=== PATIENT | female | born 1970 ===

== ENCOUNTER 2024-06-25 11:15 | Outpatient (AMB) | payer OTHER, SELFPAY ==
--- NOTE | 2024-06-25 11:19 | MHC.OFFVIS ---
Vital Signs 06/25/24 11:33 Height 5 ft 6 in Weight 160 lb 0.889 oz BMI 25.8 BP 112/62 Blood Pressure Location Lt brachial Position Sitting Respiration 16 Pulse 83 Pulse Source Pulse Oximeter Pulse Oximetry (%) 97 Oxygen Delivery Method Room Air Intake Visit Reasons: Myalgia Intake Note: Patient presents for Myalgia. My whole body hurts but I feel more pain on my shoulders, wrist, knees and ankles. I been feeling pain for 10 years but I been in extreme pain the last 5 years. Im taking Meloxicam and its not working Allergies No Known Allergies Allergy (Verified 06/25/24 11:29) Medication List - Last Reconciled 06/25/24 by Joanna Rivas MD meloxicam 7.5 mg PO DAILY pantoprazole 20 mg PO DAILY HPI Comments Details: This is a 53-year-old female with seropositive RA who presents as a new patient. She states that she has had diffuse joint pain since 2013. She was evaluated by a blueprinting and photocopy supervisor in [place] around 2016 and diagnosed with rheumatoid arthritis. She was started on methotrexate, she took it for about 3 years and it was working relatively well. Patient however developed hair loss and she discontinued it. She then moved to [place], she has been followed at the [facility], for 2 years. States that she was prescribed nabumetone. She does not recall being prescribed a DMARD. She continues to have diffuse joint pain and swelling especially her shoulders, wrists, hands, elbows, knees, feet, ankles. Denies any fevers or weight loss. Denies any history of DVT/PE. Denies skin rashes [facility] Surgical History S/P laparoscopic hernia repair History of hysterectomy Family History Mother Diabetes Arthritis Brother Pancreas cancer Social History Household Members: Family Housing: House Alcohol intake: never Patient Tobacco Use Status: Never used Tobacco Female Reproductive History Menstrual Total pregnancies: 4 Full term: 2 Ab spontaneous: 2 Review of Systems Const Denies fatigue Musc Reports arthralgias, Reports joint swelling, Reports limited range of motion and Reports stiffness Endo Denies fatigue Physical Exam Vital Signs: Last Vital Signs Pulse 83 06/25/24 11:33 Resp 16 06/25/24 11:33 BP 112/62 06/25/24 11:33 Pulse Ox 97 06/25/24 11:33 Oxygen Delivery Method Room Air 06/25/24 11:33 BMI result Body Mass Index 25.8 Const General: cooperative, healthy appearing and comfortable Nutritional Appearance: average body habitus Orientation/consciousness: patient oriented x3 Limitations: no limitations HEENT Head: Yes normocephalic and Yes atraumatic Mouth: moist mucous membranes Resp Effort & Inspection: normal respiratory effort and able to speak in complete sentences Auscultation: clear to auscultation bilaterally Cardio Rate: regular rate Rhythm: regular rhythm Skin General skin exam: no rashes or lesions noted Neuro General: patient oriented x3 Extrem Other: Significant rheumatoid arthritis deformities both hands Left wrist swelling and tenderness and significantly limited range of motion Synovial thickening of multiple MCPs left hand but no tenderness Right wrist is fixed with no flexion and extension Right 3rd MCP significant boggy swelling but no tenderness Right elbow flexion contracture associated with warmth and pain with range of motion Normal range of motion of left elbow but significant pain with full extension Bilateral knee pain with full flexion and extension Still ankle swelling and tenderness Multiple tender MTPs bilaterally Bilateral feet bunion Assessment & Plan Assessment & Plan (1) Seropositive rheumatoid arthritis: Comment: ++RF unknown CCP dx around 2016 MTX [id number] was effective but DC due to hair loss Code(s): M05.9 - Rheumatoid arthritis with rheumatoid factor, unspecified Category: Medical Plan: This is a 53-year-old female with seropositive deforming RA who presents as a new patient. Per patient she has had diffuse joint pain since 2013 , she was eventually diagnosed with rheumatoid arthritis around 2016 and was on methotrexate for approximately 3 years. Per patient it was effective but she discontinued it in 2019 due to hair loss. She moved to [place] and she has been followed up by a blueprinting and photocopy supervisor for the last 2 years. She does not recall being on any other DMARDs. On exam she has diffuse synovitis as well as significant deformities, contractures Check labs and x-rays to evaluate the extensive her disease Discussed the importance of please control. Discussed risks and benefits of Enbrel. Patient agreed to proceed. If her T spot and hepatitis panel is negative I will start prior authorization for Enbrel I will request records from the [facility]. Start prednisone taper for relief Advised patient not to combine prednisone with other NSAIDs Follow-up in about 6 weeks Plan I spent 60 minutes reviewing patient's chart, evaluating patient, ordering diagnostic workup, counseling patient & son and documenting in the chart Orders: Orders Complete Blood Count Auto Diff Today M05.9 - Rheumatoid arthritis with rheumatoid factor, unspecified Comprehensive Met. Panel Today M05.9 - Rheumatoid arthritis with rheumatoid factor, unspecified C Reactive Protein Today M05.9 - Rheumatoid arthritis with rheumatoid factor, unspecified Erythrocyte Sedimentation Rate Today M05.9 - Rheumatoid arthritis with rheumatoid factor, unspecified Immunofixation Pnl, Serum Today M05.9 - Rheumatoid arthritis with rheumatoid factor, unspecified Protein Electrophoresis, Serum Today M05.9 - Rheumatoid arthritis with rheumatoid factor, unspecified T Spot TB Today M05.9 - Rheumatoid arthritis with rheumatoid factor, unspecified HIV Ab/Ag Today M05.9 - Rheumatoid arthritis with rheumatoid factor, unspecified Cyclic Citrullinated Peptide Today M05.9 - Rheumatoid arthritis with rheumatoid factor, unspecified Complement C3 Today M32.9 - Systemic lupus erythematosus, unspecified Complement C4 Today M32.9 - Systemic lupus erythematosus, unspecified DNA Double Stranded-Crithidia Today M32.9 - Systemic lupus erythematosus, unspecified Sjogren's Antibodies Today M32.9 - Systemic lupus erythematosus, unspecified XR hand wrist RT Today M05.9 - Rheumatoid arthritis with rheumatoid factor, unspecified XR ankle RT min 3V Today M05.9 - Rheumatoid arthritis with rheumatoid factor, unspecified XR foot LT min 3V Today M05.9 - Rheumatoid arthritis with rheumatoid factor, unspecified XR knee LT 3V Today M05.9 - Rheumatoid arthritis with rheumatoid factor, unspecified XR knee RT 3V Today M05.9 - Rheumatoid arthritis with rheumatoid factor, unspecified XR knee standing BI Today M05.9 - Rheumatoid arthritis with rheumatoid factor, unspecified Hepatitis A,B,C Profile Today M05.9 - Rheumatoid arthritis with rheumatoid factor, unspecified JUAN Reflex Titer and Pattern Today M32.9 - Systemic lupus erythematosus, unspecified Anti Extractable Nuclear Ag Today M32.9 - Systemic lupus erythematosus, unspecified Anti DNA DS Antibody Today M32.9 - Systemic lupus erythematosus, unspecified Protein Creatinine Ratio, Ur Today M32.9 - Systemic lupus erythematosus, unspecified UA w Microscopic Today M32.9 - Systemic lupus erythematosus, unspecified XR hand wrist LT Today M05.9 - Rheumatoid arthritis with rheumatoid factor, unspecified XR elbow LT min 3V Today M05.9 - Rheumatoid arthritis with rheumatoid factor, unspecified XR elbow RT min 3V Today M05.9 - Rheumatoid arthritis with rheumatoid factor, unspecified XR ankle LT min 3V Today M05.9 - Rheumatoid arthritis with rheumatoid factor, unspecified XR foot RT min 3V Today M05.9 - Rheumatoid arthritis with rheumatoid factor, unspecified XR shoulder LT min 2V Today M05.9 - Rheumatoid arthritis with rheumatoid factor, unspecified XR shoulder RT min 2V Today M05.9 - Rheumatoid arthritis with rheumatoid factor, unspecified Medications: New prednisone Take 3 tabs daily for 1 week, 2 tabs daily for 1 week, 1 tab daily for 1 week then stop 42 tabs 0RF Coding Level of Care Code New Pt Level 5 (70298) Diagnoses Seropositive rheumatoid arthritis M05.9
[2024-06-25 11:33] VITALS: BP 112/62; PULSE 83; RESP 16; O2SAT 97; BMI 25.8
== END 2024-06-25 12:11 | disposition home or self-care (01) ==
PROVIDERS: PCP Family Medicine; Visit Provider Student in an Organized Health Care Education/Training Program
DX: M05.79 Rheumatoid arthritis with rheumatoid factor of multiple sites without organ or systems involvement (principal); M79.18 Myalgia, other site
CPT/HCPCS: 99205

== ENCOUNTER 2024-06-25 11:15 | Outpatient (REF) | payer OTHER, SELFPAY ==
[2024-06-25 12:44] LABS: MANUAL DIFF FLAG NO
[2024-06-25 13:50] LABS: Appearance Urine Clear; Color Urine Yellow; Glucose Urine UA Negative (Negative); Leukocyte Esterase Urine Negative (Negative); Nitrite Urine Negative (Negative); PH 7.5 (5.0-9.0); Specific Gravity - Urine 1.015 (1.005-1.025); Urine Blood Negative (Negative); Urine Ketones Negative (Negative); Urine Protein Negative (Neg-Trace)
[2024-06-25 13:56] LABS: Basophils Percent Auto 0.4 % (0-2); Eosinophils Absolute Auto 0.3 X10*3/uL (0.0-0.4); Hematocrit 37.6 % (37.0-47.0); Hemoglobin 11.7 g/dl (12.0-16.0); Imm Gran Abs Auto 0.02 X10*3/uL (0.00-0.03); Imm Gran Pct Auto 0.2 % (0.0-0.4); Lymphocytes Absolute Auto 1.9 X10*3/uL (1.2-4.9); Lymphocytes Percent Auto 22.1 % (20-40); Mean Corpuscular HGB Conc 31.1 g/dl (31.0-35.0); Mean Corpuscular Hemoglobin 27.7 pg (27.0-33.0); Mean Corpuscular Volume 89.1 fL (80.0-98.0); Mean Platelet Volume 10.3 fL (9.4-12.3); Monocytes Absolute Auto 0.6 X10*3/uL (0.1-1.2); Monocytes Percent Auto 7.4 % (2-11); Neutrophils Absolute Auto 5.6 x10*3/uL (2.0-8.3); Neutrophils Percent Auto 66.9 % (45-73); Platelet Count 640 X10*3/uL (160-400); Red Blood Count 4.22 X10*6/uL (4.20-5.50); Red Cell Distribution Width 14.2 % (11.0-16.0); White Blood Count 8.4 X10*3/uL (4.8-10.8)
[2024-06-25 13:56] LABS: Bacteria Urine None Seen (None Seen); Hyaline Casts Urine 0-2 /LPF (0-2); RBC Urine 0-2 /HPF (0-2); Squamous Epithelial Cell Urine 0-2 /HPF (0-2); WBC Urine 0-5 /HPF (0-5)
[2024-06-25 14:13] LABS: Total Protein Urine Random 9 mg/dL (<12)
[2024-06-25 14:18] LABS: Alanine Aminotransferase 11 U/L (0-31); Albumin Level 4.1 g/dL (3.5-5.0); Alkaline Phosphatase 114 U/L (39-117); Anion Gap 13 (12-20); Aspartate Amino Transferase 15 U/L (5-31); Bilirubin Total 0.3 mg/dL (0.0-1.0); Blood Urea Nitrogen 10 mg/dL (9-16); C Reactive Protein 4.68 mg/dL (< or = 0.50); Calcium 9.9 mg/dL (8.4-10.2); Carbon Dioxide 29 mmol/L (22-29); Chloride 103 mmol/L (96-108); Estimated Glomerular Filt Rate > 60; Glucose Random 82 mg/dL (60-115); Potassium 3.8 mmol/L (3.3-5.1); Sodium 141 mmol/L (135-145); Total Protein 8.8 g/dL (6.5-8.0)
[2024-06-25 14:44] LABS: Erythrocyte Sedimentation Rate 75 MM/HR (0-20)
[2024-06-26 07:38] LABS: HBS Num1 > 1000.00 mIU/mL (0-7.99); HBc Num1 5.38 S/CO (0.00-0.79); HBsAGNum1 0.44 S/CO (0.00-0.99); HIV AB/AG Nonreactive (Nonreactive); HIV Num 1 0.05 S/CO (0.00-0.99); Hepatitis A Antibody IgM 0.17 Index (0-0.79); Hepatitis B Surface Antigen Negative (Negative); ~HepC Num1 0.23 S/CO (0.00-0.79); ~Hepatitis A Antibody IgM Nonreactive (Nonreactive); ~Hepatitis B Surface Antibody REACTIVE (Nonreactive); ~Hepatitis C Antibody Nonreactive (Nonreactive)
[2024-06-26 09:13] LABS: HBc Num3 5.49 S/CO; Hepatitis B Core Antibody Reactive (Nonreactive)
[2024-06-26 12:53] LABS: Complement C3 163 mg/dL (83-193)
[2024-06-26 13:13] LABS: Prot Elec - Albumin 3.6 g/dL (3.8-4.8); Prot Elec - Alpha1 0.4 g/dL (0.2-0.3); Prot Elec - Alpha2 1.1 g/dL (0.5-0.9); Prot Elec - Beta 1 0.5 g/dL (0.4-0.6); Prot Elec - Beta 2 0.7 g/dL (0.2-0.5); Prot Elec - Gamma 1.9 g/dL (0.8-1.7); Prot Elec - Total Protein 8.2 g/dL (6.1-8.1)
[2024-06-26 21:09] LABS: Anti DNA DS Antibody <1 IU/mL; Antibody to SS-A Antigen <1.0 NEG AI (<1.0 NEG); Antibody to SS-B Antigen <1.0 NEG AI (<1.0 NEG); SM/Ribonucleoprotein Ab <1.0 NEG AI (<1.0 NEG); Smith Protein <1.0 NEG AI (<1.0 NEG)
[2024-06-27 18:37] LABS: IgA 467 mg/dL (47-310); IgG 2117 mg/dL (600-1640); IgM 81 mg/dL (50-300)
[2024-06-28 02:19] LABS: TS Negative Control Passed; TS Panel A 0; TS Panel B 1; TS Positive Control Passed; TSpotTB Negative (Negative)
[2024-06-28 21:42] LABS: Hepatitis B Core Antibody IgM NON-REACTIVE (NON-REACTIVE)
[2024-07-01 16:10] LABS: Cyclic Citrullinated Peptide >250 UNITS
[2024-07-02 12:13] LABS: ANA Pattern 2 Nuclear, Homogeneous; ANA Titer 2 1:40 titer; Anti Nuclear Antibody Screen POSITIVE (NEGATIVE); Anti Nuclear Antibody Titer 1:40 titer
[2024-07-05 15:43] LABS: DNAds, Crithidia Antibody Negative (Negative)
== END 2024-06-25 11:16 | disposition home or self-care (01) ==
LOC: HO.LAB 11:15
PROVIDERS: PCP Family Medicine; Visit Provider Student in an Organized Health Care Education/Training Program
DX: Z11.4 Encounter for screening for human immunodeficiency virus [HIV] (principal); Z11.1 Encounter for screening for respiratory tuberculosis; M05.9 Rheumatoid arthritis with rheumatoid factor, unspecified; M32.9 Systemic lupus erythematosus, unspecified
CPT/HCPCS: 36415; 80053; 81001; 82570; 82784; 84156; 84165; 85025; 85652; 86038; 86039; 86140; 86160; 86200; 86225; 86235; 86255; 86334; 86481; 86704; 86705; 86706; 86709; 86803; 87340; 87389; 99202

== ENCOUNTER 2024-09-19 13:13 | Outpatient (REF) | payer OTHER, SELFPAY | END 2024-09-19 13:14 | disposition home or self-care (01) | LOC: HO.XRAY 13:13 | PROVIDERS: Visit Provider Student in an Organized Health Care Education/Training Program | DX: M05.9 Rheumatoid arthritis with rheumatoid factor, unspecified (principal) | CPT/HCPCS: 73030; 73080; 73110; 73130; 73564; 73610; 73630 ==

== ENCOUNTER 2024-09-27 15:33 | Outpatient (AMB) | payer OTHER, SELFPAY ==
--- NOTE | 2024-09-27 15:56 | A.OFFVIS_ITS ---
Vital Signs 09/27/24 15:57 Height 5 ft 6 in Weight 175 lb 7.807 oz BMI 28.3 Intake Visit Reasons: RA/CM Intake Note: Patient last seen by Doctor Joanna Rivas on 06/25/24. Presents today for Myalgia follow up and labs/X-ray's test results. Patient would like to discuss changing Melixicam to a stronger medication. [facility] Name: [id number] Allergies No Known Allergies Allergy (Verified 09/27/24 15:58) HPI Comments Details: 54-year-old female with seropositive erosive RA returns for follow-up. She started Enbrel about 3 months ago. She has been doing Enbrel for the last 3 months. Well-tolerated. Has not reported any side effects. She states that she is dramatically better. All her joint pains are gone except for her right elbow and left ankle. Her left ankle is swollen. Initial history: This is a 53-year-old female with seropositive RA who presents as a new patient. She states that she has had diffuse joint pain since 2013. She was evaluated by a electrical systems design engineer in [place] around 2016 and diagnosed with rheumatoid arthritis. She was started on methotrexate, she took it for about 3 years and it was working relatively well. Patient however developed hair loss and she discontinued it. She then moved to [place], she has been followed at the [facility], for 2 years. States that she was prescribed nabumetone. She does not recall being prescribed a DMARD. She continues to have diffuse joint pain and swelling especially her shoulders, wrists, hands, elbows, knees, feet, ankles. Denies any fevers or weight loss. Denies any history of DVT/PE. Denies skin rashes [facility] Surgical History S/P laparoscopic hernia repair History of hysterectomy Family History Mother Diabetes Arthritis Brother Pancreas cancer Social History Household Members: Family Housing: House Alcohol intake: never Patient Tobacco Use Status: Never used Tobacco Female Reproductive History Menstrual Total pregnancies: 4 Full term: 2 Ab spontaneous: 2 Review of Systems Const Denies fatigue Musc Reports arthralgias, Reports joint swelling, Reports limited range of motion and Reports stiffness Endo Denies fatigue Physical Exam Vital Signs: BMI result Body Mass Index 28.3 Const General: cooperative, healthy appearing and comfortable Nutritional Appearance: average body habitus Orientation/consciousness: patient oriented x3 Limitations: no limitations HEENT Head: Yes normocephalic and Yes atraumatic Mouth: moist mucous membranes Resp Effort & Inspection: normal respiratory effort and able to speak in complete sentences Auscultation: clear to auscultation bilaterally Cardio Rate: regular rate Rhythm: regular rhythm Skin General skin exam: no rashes or lesions noted Neuro General: patient oriented x3 Extrem Other: Significant rheumatoid arthritis deformities both hands Significantly limited wrist flexion-extension bilaterally (chronic) Left wrist swelling and tenderness is resolved, prominent left ulnar styloid Synovial thickening of multiple MCPs left hand but no tenderness Right wrist is almost fixed with no flexion and extension Right 3rd MCP significant boggy swelling but no tenderness Tenderness at the right common extensor origin at the right lateral epicondyle No significant elbow warmth or pain with full flexion and extension Normal pain-free range of motion of left elbow, no warmth or swelling No knee pain swelling or warmth or pain with full flexion and extension Significant left ankle swelling, warmth and tenderness at the medial malleolus No tender MTPs today Negative MTP squeeze test Bilateral feet bunion Assessment & Plan Assessment & Plan (1) Seropositive rheumatoid arthritis: Comment: ++RF +++ CCP dx around 2016 MTX [id number] was effective but DC due to hair loss Enbrel started 06/2024 effective Code(s): M05.9 - Rheumatoid arthritis with rheumatoid factor, unspecified Category: Medical Plan: This is a 54-year-old female with seropositive deforming RA who presents for follow-up. Doing much better overall since Enbrel was started 3 months ago. It is well tolerated with no side effects. She is dramatically improved. She only has 1 swollen joint. The left ankle. I will prescribe prednisone taper. If patient gets recurrent synovitis, additional DMARDs should be considered such as hydroxychloroquine or leflunomide Labs before next visit in 3 months (2) Right tennis elbow: Code(s): M77.11 - Lateral epicondylitis, right elbow Category: Medical Plan: Referred to occupational therapy. If no improvement tender consider injection next visit (3) High risk medication use: Code(s): Z79.899 - Other long term care pharmacist (current) drug therapy Category: Medical Plan: Side effects of Enbrel were discussed with the patient in detail including increased risk of infection, demyelinating disease, reactivation of latent TB, possible increased risk of solid and skin tumors. Patient fully aware. Advised patient to seek medical care [facility] if patient has an infection and advised patient to stop the medication until the infection is resolved. Plan I spent 30 minutes reviewing patient's chart, evaluating patient, ordering diagnostic workup, counseling patient & son and documenting in the chart Orders: Orders OT Evaluation and Treatment Today M77.11 - Lateral epicondylitis, right elbow Complete Blood Count Auto Diff 3 Months M05.9 - Rheumatoid arthritis with rheumatoid factor, unspecified Comprehensive Met. Panel 3 Months M05.9 - Rheumatoid arthritis with rheumatoid factor, unspecified C Reactive Protein 3 Months M05.9 - Rheumatoid arthritis with rheumatoid f actor, unspecified Erythrocyte Sedimentation Rate 3 Months M05.9 - Rheumatoid arthritis with rheumatoid factor, unspecified Medications: Changed From prednisone Take 3 tabs daily for 1 week, 2 tabs daily for 1 week, 1 tab daily for 1 week then stop 42 tabs 0RF To prednisone Take 3 tabs daily for 5 days, 2 tabs daily for 5 days, 1 tab daily for 5 days then stop 30 tabs 0RF Coding Level of Care Code Est Pt Level 4 (99861) Complex EM visit Add On G2211 Diagnoses Seropositive rheumatoid arthritis M05.9 Right tennis elbow M77.11 High risk medication use Z79.899
[2024-09-27 15:57] VITALS: BMI 28.3
== END 2024-09-27 16:21 | disposition home or self-care (01) ==
PROVIDERS: PCP Family Medicine; Visit Provider Student in an Organized Health Care Education/Training Program
DX: M05.79 Rheumatoid arthritis with rheumatoid factor of multiple sites without organ or systems involvement (principal); M77.11 Lateral epicondylitis, right elbow; Z79.899 Other long term (current) drug therapy
CPT/HCPCS: 99214; G2211

== ENCOUNTER → 2024-09-27 15:33 | Outpatient (BNVA) | payer OTHER, SELFPAY | PROVIDERS: PCP Family Medicine; Visit Provider Student in an Organized Health Care Education/Training Program | DX: M05.9 Rheumatoid arthritis with rheumatoid factor, unspecified (principal); M77.11 Lateral epicondylitis, right elbow; Z79.899 Other long term (current) drug therapy | CPT/HCPCS: 99212 ==

== ENCOUNTER 2025-01-07 10:16 | Outpatient (REF) | payer OTHER, SELFPAY ==
[2025-01-07 10:44] LABS: MANUAL DIFF FLAG NO
--- OUTSIDE RECORDS SUMMARY | 2025-01-07 11:15 | XMS_ITS | Clinical Summary ---
Author Organization [employer] Address [address] [facility] [address] [place] [address] Care Team Providers Care Highway Maintenance Supervisor Name Role Phone Unavailable Primary Care Provider Unavailabl e Social History Tobacco Use Types Packs/Day Years Used Date Smoking Tobacco: Never Assessed Comments Unknown Sex and Gender Information Value Date Recorded Sex Assigned at Female 06/15/2023 12:58 PM EDT Legal Sex Female 12:54 PM EDT Gender Identity Female 06/15/2023 12:58 PM EDT Sexual Orientation Don't know 06/15/2023 12 :58 PM EDT Plan of Treatment Health Maintenance Due Date Last Done Comments CT Colonography 1969 Colonoscopy 1969 Colorectal Cancer Screening 1969 Depression Screening 1969 FIT DNA/Cologuard 1969 FIT 1969 FOBT 1969 HIV Screening 1969 SDOH Screening 1969 Sigmoidoscopy 1969 Alcohol/Substance Use Screening 1981 Tobacco Screening 1981 Hepatitis C Screening 1987 DTaP/Tdap/Td Vaccines (1 - Tdap) 1988 Hepatitis B Vaccines (1 of 3 - 19+ 3-dose series) 1988 Pap Smear 1990 Cervical Cancer Screening 1999 HPV/Cotest 1999 Mammogram 2009 Pneumococcal Vaccine: 50+ Ye ars (1 of 1 - PCV) 2019 Zoster Vaccines (1 of 2) 2019 COVID-19 Vaccine ( - 2023-2 5 season) 2024 Influenza Vaccine (#1) 2024 RSV Patients and Pa tients Aged 60 years or older (1 - 1-dose 75+ series) 2044 HIB Vaccines Aged Out No longer eligi ble based on patient's age to complete this topic HPV Vaccines Aged Out No longer eligi ble based on patient's age to complete this topic Hepatitis A Vaccines Aged Out No long er eligible based on patient's age to complete this topic IPV Vaccines Aged Out No longer eligi ble based on patient's age to complete this topic Meningococcal Vaccine Aged Out No carmen marcus eligible based on patient's age to complete this topic RSV under 20 months Aged Out No longe r eligible based on patient's age to complete this topic Rotavirus Vaccines Aged Out No longer eligible based on patient's age to complete this topic Insurance [facility]
--- OUTSIDE RECORDS SUMMARY | 2025-01-07 11:15 | XMS_ITS | Clinical Summary ---
Author Organization [address] [facility] Building Address [address] [place] [address] Phone Care Team Providers Care Sock Drier Name Role Phone Kristen James DO Primary Care Provider [phone] Allergies No known active allergies Medications pantoprazole (PROTONIX) 20 mg EC tablet TOME THELMA TABLETA TODOS [place] 03/01/2024 Active acetaminophen (TYLENOL 8 HOUR) 650 mg 8 hr tablet Take 1 tablet (650 mg total) by mouth every 12 (twelve) hours if needed. 09/06/2023 Active meloxicam (MOBIC) 7.5 mg tablet Take 1 tablet (7.5 mg total) by mouth 1 (one) time each day. 30 tablet 2 10/24/2024 Active Active Problems Problem Noted Date Diagnosed Date Myalgia 06/28/2024 Overview (09/10/2024): + RA. [facility]. Seen in 2023 Immunizations Name Administration Dates Next Due Tdap Tetanus diptheria acell ular pertussis (Boostrix; Adacel) 7yo and older 03/18/2024 Surgical History Surgery Date Site/Laterality Comments HYSTERECTOMY PROCEDURE: HISTORICAL HYSTERECTOMY BREAST SURGERY PROCEDURE: PA BREAST AUGMENTATION WITH IMPLANT HERNIA REPAIR PROCEDURE: LAPAROSCOPY, INGUINAL HERNIA REPAIR Medical History Medical History Date Comments History of uterine fibroid DX:Hi story of uterine fibroid History of anemia DX:History of anemia Family History Medical History Relation Name Comments Diabetes Mother Relation Name Status Comments Mother Social History Tobacco Use Types Packs/Day Years Used Date Smoking Tobacco: Never Smokeless Tobacco: Never Alcohol Use Standard Drinks/Week Comments Never 0 (1 standard drink = 0.6 oz pur e alcohol) Housing Instability Answer Date Recorde d Are you worried that in the next 2 months you may not have stable housing? Patient declined 09/25/2024 Food Access & Nutrition Answer Date Rec orded Do you have access to a vari ety of food including fruits and vegetables? No 09/25/2024 Financial Risk Answer Date Recorded How hard is it for you to pa y for the very basics like food, housing, medical care, and air conditioning / heating? Very hard 09/25/2024 Transportation Answer Date Recorded Has the lack of transportati on kept you from meetings, work, or from getting things needed for daily living? Unable to respond 09/25/2024 Has the lack of transportati on kept you from medical appointments or from getting medications? Unable to respond 09/25/2024 Social Isolation Answer Date Recorded How often do you feel lonely or isolated from th ose around you? Never 09/25/2024 Food Risk Answer Date Recorded Within the past 12 months we worried whether our food would run out before we got money to buy more. Not asked 024 Within the past 12 months th e food we bought just didn't last and we didn't have money to get more. Sometimes true 09/25/2024 Dependent Care Answer Date Recorded Do you need help finding or paying for care for your loved ones. For example, children librarian or elderly care for an older adult? Patient declined 09/25/2024 Education Answer Date Recorded Do you think completing more education or training, like finishing a GED, going to college, or learning a trade, would be helpful for you? N/A 09/25/2024 Employment and Income Answer Date Recor ded During the last four weeks, have you been actively looking for work? Patient declined 09/25/2024 Living Situation Answer Date Recorded What is your living situation? 1 11/25/2023 Comments Unknown Sex and Gender Information Value Date Recorded Sex Assigned at Not on file Legal Sex Female 4:17 AM EST Gender Identity Not on file Sexual Orientation Not on file Obstetrics History Last Filed Vital Signs Vital Sign Reading Time Taken Comments Blood Pressure 116/78 03/18/2024 2:21 PM EDT Pulse 80 03/18/2024 2:21 PM EDT Temperature - - Respiratory Rate - - Oxygen Saturation - - Inhaled Oxygen Concentration - - Weight 75.5 kg (166 lb 8 oz) 03/18/2024 2:21 PM EDT Height - - Body Mass Index - - Plan of Treatment Upcoming Encounters Date Type Department Care Team (Late st Contact Info) Description 01/21/2025 9:45 AM EST Office Visit [facility] [address] [place] [address] Raúl Watson PA [address] [place] [address] Health Maintenance Due Date Last Done Comments Breast Cancer Screening 1969 Hepatitis B Vaccines (1 of 3 - 19+ 3-dose series) 1988 Cervical Cancer Screening: P ap Smear 1990 Pneumococcal Vaccine: 50+ Ye ars (1 of 1 - PCV) 2019 Zoster Vaccines (1 of 2) 2019 Colorectal Cancer Screening: Colonoscopy 10/23/2022 HIV Screening 10/23/2022 COVID-19 Vaccine (1 - 2023-2 5 season) 2024 Influenza Vaccine (#1) 2024 Depression Screening 09/25/2025 09/25/2024 Social Influencers of Health Screening 09/25/2025 09/25/2024 Cholesterol Screening (Lipid Panel) 09/19/2028 09/19/2023 DTaP,Tdap,and Td Vaccines (2 - Td or Tdap) 03/18/2034 03/18/2024 Hepatitis C Screening Completed 09/19/2023 HIB Vaccines Aged Out No longer eligi [...] on patient's age to complete this topic MMR Vaccines Aged Out No longer eligi ble based on patient's age to complete this topic Meningococcal ACWY Vaccine Aged Out N o longer eligible based on patient's age to complete this topic Meningococcal B Vacine Aged Out No lo nger eligible based on patient's age to complete this topic Pneumococcal Vaccine: Pediat rics (0 to 5 Years) and At-Risk Patients (6 to 64 Years) Aged Out No longer eligi ble based on patient's age to complete this topic RSV Immunization Patients Un devan 20 months Aged Out No longer eligible b ased on patient's age to complete this topic Varicella Vaccines Aged Out No longer eligible based on patient's age to complete this topic Procedures Procedure Name Priority Date/Time Associated Diagnosis Comments HEPATITIS C SCREENING Routine 09/19/2023 LIPID PANEL Routine 09/19/2023 from Last 3 Months or Most Recently Relevant to Health Maintenance Results * Hepatitis C Screening (09/19/2023) Hepatitis C Screening Abstracted Historical Provider HEALTH MAINTENANCE Final Result * Lipid panel (09/19/2023) LDL/HDL Ratio 2 0 - 4 Triglycerides 58 0 - 150 mg/dL Cholesterol 196 0 - 200 mg/dL HDL 86 >=40 mg/dL LDL Cholesterol 99 0 - 100 mg/dL Blood Venous blood specimen / Unknown Historical Provider LAB BLOOD ORDERABLES Berenice l Result from Last 3 Months or Most Recently Relevant to Health Maintenance Insurance PLANS Care Teams Sock Drier Relationship Specialty Start Date End Date Kristen James DO [address] [place] [address] PCP - General 06/28/23
[2025-01-07 11:21] LABS: Basophils Percent Auto 0.4 % (0-2); Eosinophils Absolute Auto 0.1 X10*3/uL (0.0-0.4); Eosinophils Percent Auto 1.6 % (0-4); Hematocrit 42.4 % (37.0-47.0); Hemoglobin 13.3 g/dl (12.0-16.0); Imm Gran Abs Auto 0.03 X10*3/uL (0.00-0.03); Imm Gran Pct Auto 0.3 % (0.0-0.4); Lymphocytes Absolute Auto 1.9 X10*3/uL (1.2-4.9); Lymphocytes Percent Auto 20.8 % (20-40); Mean Corpuscular HGB Conc 31.4 g/dl (31.0-35.0); Mean Corpuscular Hemoglobin 28.7 pg (27.0-33.0); Mean Corpuscular Volume 91.6 fL (80.0-98.0); Mean Platelet Volume 11.2 fL (9.4-12.3); Monocytes Absolute Auto 0.6 X10*3/uL (0.1-1.2); Monocytes Percent Auto 6.9 % (2-11); Neutrophils Absolute Auto 6.3 x10*3/uL (2.0-8.3); Platelet Count 420 X10*3/uL (160-400); Red Blood Count 4.63 X10*6/uL (4.20-5.50); Red Cell Distribution Width 13.2 % (11.0-16.0)
[2025-01-07 11:50] LABS: Estimated Average Glucose 117 mg/dL; Hemoglobin A1C 133.5268 umol/L; Hemoglobin A1c % 5.7 % (<6.0); Total Hemoglobin (HGBA1C) 3432.4112 umol/L
[2025-01-07 12:02] LABS: Erythrocyte Sedimentation Rate 10 MM/HR (0-20)
[2025-01-07 12:20] LABS: Alanine Aminotransferase 59 U/L (0-31); Albumin Level 4.1 g/dL (3.5-5.0); Alkaline Phosphatase 103 U/L (39-117); Anion Gap 12 (12-20); Aspartate Amino Transferase 54 U/L (5-31); Bilirubin Total 0.6 mg/dL (0.0-1.0); Blood Urea Nitrogen 16 mg/dL (9-16); C Reactive Protein 0.24 mg/dL (< or = 0.50); Calcium 9.6 mg/dL (8.4-10.2); Carbon Dioxide 26 mmol/L (22-29); Chloride 109 mmol/L (96-108); Estimated Glomerular Filt Rate > 60; Glucose Random 86 mg/dL (60-115); Potassium 4.2 mmol/L (3.3-5.1); Sodium 143 mmol/L (135-145); Total Protein 7.6 g/dL (6.5-8.0)
== END 2025-01-07 10:17 | disposition home or self-care (01) ==
LOC: HO.LAB 10:16
PROVIDERS: Visit Provider Student in an Organized Health Care Education/Training Program
DX: M05.9 Rheumatoid arthritis with rheumatoid factor, unspecified (principal); Z13.1 Encounter for screening for diabetes mellitus; M19.072 Primary osteoarthritis, left ankle and foot; Z51.81 Encounter for therapeutic drug level monitoring; Z79.620 Long term (current) use of immunosuppressive biologic
CPT/HCPCS: 36415; 80053; 83036; 85025; 85652; 86140; 99212

== ENCOUNTER 2025-01-07 10:51 | Outpatient (AMB) | payer OTHER, SELFPAY ==
--- NOTE | 2025-01-07 11:18 | A.OFFVIS_ITS ---
Vital Signs 01/07/25 11:23 Height 5 ft 6 in Weight 177 lb 11.081 oz BMI 28.7 BP 120/82 Blood Pressure Location Rt brachial Position Sitting Respiration 16 Pulse 67 Pulse Source Pulse Oximeter Pulse Oximetry (%) 97 Oxygen Delivery Method Room Air Intake Visit Reasons: RA Intake Note: Patient presents for RA. Matchbook Assembler Required: Yes Matchbook Assembler Language: Talent Acquisition Coordinator Services: Matchbook Assembler Present Matchbook Assembler Name: Mirna [id number] Information Interpreted: non-clinical & clinical Allergies No Known Allergies Allergy (Verified 01/07/25 11:22) Medication List - Last Reconciled 01/07/25 by Danay Moreira MD Enbrel SureClick (etanercept) 50 mg subcut QWEEK NS meloxicam 7.5 mg PO DAILY pantoprazole 20 mg PO DAILY prednisone 10 mg PO DAILY HPI Comments Details: Patient is a 54-year-old female with seropositive erosive rheumatoid arthritis here today for follow up Interval History: Patient last seen 09/27/[address] Rivas. At that time she had recently started Enbrel and reported that her symptoms were dramatically better. Only remaining problems where her right elbow and left ankle. Today, Patient is feeling much better Still having residual left foot pain makes it difficult to walk Rheumatologic History: Seropositive RA ++RF +++ CCP dx around 2016 MTX [id number] was effective but DC due to hair loss Enbrel started 06/2024 effective. Initial history: This is a 53-year-old female with seropositive RA who presents as a new patient. She states that she has had diffuse joint pain since 2014. She was evaluated by a cold working supervisor in [place] around 2016 and diagnosed with rheumatoid arthritis. She was started on methotrexate, she took it for about 3 years and it was working relatively well. Patient however developed hair loss and she discontinued it. She then moved to [place], she has been followed at the [facility], for 2 years. States that she was prescribed nabumetone. She does not recall being prescribed a DMARD. She continues to have diffuse joint pain and swelling especially her shoulders, wrists, hands, elbows, knees, feet, ankles. Denies any fevers or weight loss. Denies any history of DVT/PE. Denies skin rashes Current Rheumatology Medication(s): Enbrel 50mg SC weekly Prednisone 10mg daily [facility] Medical History (Updated 01/07/25 @ 12:49 by Danay Moreira MD) Encounter for monitoring of etanercept therapy Osteoarthritis Surgical History S/P laparoscopic hernia repair History of hysterectomy Family History Mother Diabetes Arthritis Brother Pancreas cancer Social History Household Members: Family Housing: House Alcohol intake: never Patient Tobacco Use Status: Never used Tobacco Review of Systems Const Details: Review of Systems Constitutional: Denies fever, chills, weight loss ENT: Denies vision changes, eye pain or eye redness, dental caries, dry mouth GI: Denies nausea, vomiting, diarrhea, abdominal pain, change in BM Pulm: Denies SOB, CAR, hemoptysis, wheezing Cards: Denies chest pain, palpitations Skin: Denies Raynaud's, rash, nail changes, photosensitivity, COMMUTATOR PRESSER: Denies headaches, weakness, paresthesias, recurrent falls MSK: as per HPI All other systems reviewed and are unremarkable except noted above Physical Exam Vital Signs: Last Vital Signs Pulse 67 01/07/25 11:23 Resp 16 01/07/25 11:23 BP 120/82 01/07/25 11:23 Pulse Ox 97 01/07/25 11:23 Oxygen Delivery Method Room Air 01/07/25 11:23 BMI result Body Mass Index 28.7 Vital signs reviewed Physical Examination CONSTITUITIONAL Patient alert and cooperative. Well appearing and in no apparent painful distress HEENT Conjunctiva and sclera clear. ?Pupils equal round and reactive to light. ?No lymphadenopathy. ? CHEST/RESPIRATORY SYSTEM Normal respiratory effort and able to speak in complete sentences. ?Clear to auscultation bilaterally. ?No crackles, rales, rhonchi, wheezes heard. CARDIAC SYSTEM Regular rate and rhythm. ?S1 and S2 heard no murmurs. ?Radial pulses intact bilaterally MSK Hands: ?Good carbide operator strength bilaterally. No deformities noted. ?No synovitis no abelardo to the MCPs, PIPs or DIPs. ?No tenderness to palpation of these joints. Wrists: ?Bilateral wrist fusion. ?No tenderness to palpation or synovitis noted to the wrists. Elbows: Full range of motion without pain. No tenderness, weakness, swelling, increased warmth or erythema. Shoulders: Full range of motion without pain. No tenderness, weakness, swelling, increased warmth or erythema. Hips: Full range of motion without pain. Hip bursa: No tenderness to palpation Knees: ?Full range of motion. ?No tenderness, swelling, increased warmth or erythema.?No effusion or crepitations Ankles: Full range of motion. ?No tenderness, swelling, increased warmth or erythema.? Feet: ?Can lose palpation of the base of the 1st metatarsal and 5th metatarsal. With minor overlying swelling Tender points:?No tenderness to palpation of the bilateral trapezius, supraspinatus, greater trochanters, anterior costochondral junctions, bilateral gluteal areas, bilateral suboccipital muscle insertions SKIN Skin intact without rashes. Results Reviewed Results Reviewed: Laboratory Tests 06/25/24 01/07/25 12:36 10:42 WBC 9.0 RBC 4.63 Hgb 13.3 Hct 42.4 MCV 91.6 Plt Count 420 H D ESR 75 H 10 Sodium 141 143 Potassium 3.8 4.2 Chloride 103 109 H Carbon Dioxide 29 26 BUN 10 16 Creatinine 0.69 0.63 Total Bilirubin 0.6 AST 54 H ALT 59 H C-Reactive Protein 4.68 H 0.24 Albumin 4.1 Laboratory Tests 06/25/24 12:36 Cycl Citrul Peptide IgG >250 H Hepatitis A IgM Ab Nonreactive Hep Bs Antigen Negative Hep Bs Antibody REACTIVE Hep B Core Total Ab Reactive Hep B Core IgM Ab NON-REACTIVE Hepatitis C Ab (EIA) Nonreactive HIV 1&2 Ab/P24 Ag 4thGn Nonreactive TB Test (T-Spot) Com Negative XR Bilat Feet 08/2024 FINDINGS (Left): Diffuse demineralization. Pes planus. Degenerative changes at the talonavicular and calcaneocuboid joints with hypertrophic change and narrowing. Degenerative changes at the midfoot and tarsometatarsal joints. Mild degenerative changes at the first metatarsophalangeal joint. FINDINGS (Right): Diffuse demineralization. Pes planus. Moderate degenerative changes with hypertrophic change and narrowing at the talonavicular joint. Mild degenerative changes in the first metatarsophalangeal joint. Degenerative changes in the midfoot. Possible erosion along the lateral aspect of the fifth metatarsal head. Assessment & Plan Assessment & Plan (1) Seropositive rheumatoid arthritis: Comment: ++RF +++ CCP dx around 2017 MTX [id number] was effective but DC due to hair loss Enbrel started 06/2024 effective Code(s): M05.9 - Rheumatoid arthritis with rheumatoid factor, unspecified Category: Medical Plan: #Seropositive Erosive RA Patient currently in remission on Enbrel Stop prednisone 10mg Elevated transaminases, stop meloxicam Plan - Enbrel 50mg SC weekly - Stop prednisone - Stop meloxicam - RTC 3 months - Labs before visit: CBC, CMP, ESR, CRP, hepatitis panel, T spot (2) Osteoarthritis: Code(s): M19.90 - Unspecified osteoarthritis, unspecified site Category: Medical Qualifiers: Osteoarthritis location: foot Osteoarthritis type: primary Laterality: left Qualified Code(s): M19.072 - Primary osteoarthritis, left ankle and foot Plan: #Foot OA Patient with residual pain likely secondary to osteoarthritis as evidenced on her x-rays. We will need to stop the meloxicam given the elevated transaminases. Topical diclofenac and we will schedule an appointment for ultrasound guided injection of the MTPs/tarsal joint Plan - Topical diclofenac - US guided steroid injection (3) Encounter for monitoring of etanercept therapy: Code(s): Z51.81 - Encounter for therapeutic drug level monitoring; Z79.620 - group home (current) use of immunosuppressive biologic Category: Medical Plan: #Long-term Use of TNF Inhibitors: Enbrel Discussed with the patient the benefits and risks of TNF inhibitors for the management of the rheumatic condition Benefits include reduce pain, maintenance of remission and reduction of flares as well as ?progression of the disease Risks include injection sites/infusion reactions, serious infections (such as bacterial infections, opportunistic infections), malignancy, delaminating syndromes, autoimmune phenomena, CHF exacerbations, palmar plantar psoriasis and cytopenias Recommended rotating injection sites, and holding medication during and for up to 1 week after resolution of a febrile illness or open skin wound Plan I spent 35 minutes reviewing the record and labs, taking a history, examining the patient, discussing the treatment plan and documenting in the medical record Orders: Orders US guided asp or inj major jt Today M19.079 - Primary osteoarthritis, unspecified ankle and foot Comprehensive Met. Panel 3 Months M05.9 - Rheumatoid arthritis with rheumatoid factor, unspecified Complete Blood Count Auto Diff 3 Months M05.9 - Rheumatoid arthritis with rheumatoid factor, unspecified C Reactive Protein 3 Months M05.9 - Rheumatoid arthritis with rheumatoid factor, unspecified Erythrocyte Sedimentation Rate 3 Months M05.9 - Rheumatoid arthritis with rhe umatoid factor, unspecified Hepatitis A,B,C Profile Today M05.9 - Rheumatoid arthritis with rheumatoid factor, unspecified T Spot TB Today M05.9 - Rheumatoid arthritis with rheumatoid factor, unspecified Medications: New diclofenac sodium 1% (Arthritis Pain (diclofenac)) apply to foot 4 grams topical QID 100 grams 0RF M19.90 - Unspecified osteoarthritis, unspecified site Refilled Enbrel SureClick (etanercept) 50 mg subcut QWEEK 4 mL 3RF NS M05.9 - Rheumatoid arthritis with rheumatoid factor, unspecified Discontinued prednisone Discontinued Reason: Doctor's Order 10 mg PO DAILY 30 tabs 0RF M05.9 - Rheumatoid arthritis with rheumatoid factor, unspecified Coding Level of Care Code Est Pt Level 4 (86785) Complex EM visit Add On G2211 Diagnoses Seropositive rheumatoid arthritis M05.9 Primary osteoarthritis of left foot M19.072 Osteoarthritis location: foot Osteoarthritis type: primary Laterality: left Encounter for monitoring of etanercept therapy Z51.81; Z79.620
[2025-01-07 11:23] VITALS: BP 120/82; PULSE 67; RESP 16; O2SAT 97; BMI 28.7
--- OUTSIDE RECORDS SUMMARY | 2025-01-07 12:03 | XMS_ITS | Clinical Summary ---
Author Organization [employer] Address [address] [facility] [address] [place] [address] Care Team Providers Care Tow Feeder Name Role Phone Unavailable Primary Care Provider [...] patient's age to complete this topic Insurance [facility]
--- OUTSIDE RECORDS SUMMARY | 2025-01-07 12:03 | XMS_ITS | Clinical Summary ---
Author Organization [address] [facility] Building Address [address] [place] [address] Phone Care Team Providers Care Lead Neurodiagnostic Technologist Name Role Phone Kristen James DO Primary Care Provider [phone] Allergies No known active allergies Medications pantoprazole [...] Date Myalgia 06/28/2024 Overview (09/10/2024): + RA. [facility]. Seen in 2023 Immunizations Name Administration Dates Next Due Tdap Tetanus diptheria acell ular pertussis (Boostrix; Adacel) 7yo and older 03/18/2024 Surgical History Surgery Date Site/Laterality Comments HYSTERECTOMY PROCEDURE: HISTORICAL HYSTERECTOMY BREAST SURGERY PROCEDURE: KS BREAST AUGMENTATION WITH IMPLANT HERNIA REPAIR PROCEDURE: [...] care for your loved ones. For example, child & adolescent psychiatrist or elderly care for an older adult? [...] Description 01/21/2025 9:45 AM EST Office Visit Client Service Manager - [facility] [address] [place] [address] Raúl Watson PA [address] [place] [address] Health Maintenance Due Date Last Done Comments [...] to Health Maintenance Insurance PLANS Care Teams Lead Neurodiagnostic Technologist Relationship Specialty Start Date End Date Kristen James DO [address] [place] [address] PCP - General 06/28/23
== END 2025-01-07 12:31 | disposition home or self-care (01) ==
PROVIDERS: PCP Family Medicine; Visit Provider Student in an Organized Health Care Education/Training Program
DX: M05.79 Rheumatoid arthritis with rheumatoid factor of multiple sites without organ or systems involvement (principal); M19.072 Primary osteoarthritis, left ankle and foot; Z51.81 Encounter for therapeutic drug level monitoring; Z79.620 Long term (current) use of immunosuppressive biologic
CPT/HCPCS: 99214; G2211

== ENCOUNTER 2025-04-15 09:09 | Outpatient (AMB) | payer OTHER, SELFPAY ==
--- NOTE | 2025-04-15 09:26 | A.OFFVIS_ITS ---
Vital Signs 04/15/25 09:31 Height 5 ft 6 in Weight 175 lb 14.862 oz BMI 28.4 BP 115/72 Blood Pressure Location Lt brachial Position Sitting Respiration 16 Pulse 66 Pulse Source Pulse Oximeter Pulse Oximetry (%) 98 Oxygen Delivery Method Room Air Intake Visit Reasons: RA Intake Note: Patient presents for RA follow up. Meter Repair Shop Supervisor Required: Yes Meter Repair Shop Supervisor Language: Director Of Radio Services Services: Meter Repair Shop Supervisor Present Meter Repair Shop Supervisor Name: Pedro [id number] Information Interpreted: non-clinical & clinical Allergies No Known Allergies Allergy (Verified 04/15/25 09:30) Medication List - Last Reconciled 04/15/25 by Danay Moreira MD diclofenac sodium 1% (Arthritis Pain (diclofenac)) 4 grams topical QID Enbrel SureClick (etanercept) 50 mg subcut QWEEK NS pantoprazole 20 mg PO DAILY HPI Comments Details: Patient is a 54-year-old female with seropositive erosive rheumatoid arthritis here today for follow up Interval History: Patient last seen 01/07/25 with me. At that time she was on Enbrel 50 mg weekly and prednisone 10 mg daily. She was in remission based on her examination and plan was to stop her prednisone Today, Able to stop the prednisone without any issues Tolerating weekly Enbrel Complaining of left ankle pain Rheumatologic History: Seropositive RA ++RF +++ CCP dx around 2016 MTX [id number] was effective but DC due to hair loss Enbrel started 06/2024 effective. Initial history: This is a 53-year-old female with seropositive RA who presents as a new patient. She states that she has had diffuse joint pain since 2013. She was evaluated by a refrigeration mechanic helper in [place] around 2016 and diagnosed with rheumatoid arthritis. She was started on methotrexate, she took it for about 3 years and it was working relatively well. Patient however developed hair loss and she discontinued it. She then moved to [place], she has been followed at the [facility], for 2 years. States that she was prescribed nabumetone. She does not recall being prescribed a DMARD. She continues to have diffuse joint pain and swelling especially her shoulders, wrists, hands, elbows, knees, feet, ankles. Denies any fevers or weight loss. Denies any history of DVT/PE. Denies skin rashes Current Rheumatology Medication(s): Enbrel 50mg SC weekly [facility] Medical History (Updated 01/07/25 @ 12:49 by Danay Moreira MD) Encounter for monitoring of etanercept therapy Osteoarthritis Surgical History S/P laparoscopic hernia repair History of hysterectomy Family History Mother Diabetes Arthritis Brother Pancreas cancer Social History Household Members: Family Housing: House Alcohol intake: never Patient Tobacco Use Status: Never used Tobacco Review of Systems Const Details: Review of Systems Constitutional: Denies fever, chills, weight loss ENT: Denies vision changes, eye pain or eye redness, dental caries, dry mouth GI: Denies nausea, vomiting, diarrhea, abdominal pain, change in BM Pulm: Denies SOB, CAR, hemoptysis, wheezing Cards: Denies chest pain, palpitations Skin: Denies Raynaud's, rash, nail changes, photosensitivity, ADMITTING CLERK: Denies headaches, weakness, paresthesias, recurrent falls MSK: as per HPI All other systems reviewed and are unremarkable except noted above Physical Exam Vital Signs: Last Vital Signs Pulse 66 04/15/25 09:31 Resp 16 04/15/25 09:31 BP 115/72 04/15/25 09:31 Pulse Ox 98 04/15/25 09:31 Oxygen Delivery Method Room Air 04/15/25 09:31 BMI result Body Mass Index 28.4 Vital signs reviewed Physical Examination CONSTITUITIONAL Patient alert and cooperative. Well appearing and in no apparent painful distr ess HEENT Conjunctiva and sclera clear. ?Pupils equal round and reactive to light. ?No lymphadenopathy. ? CHEST/RESPIRATORY SYSTEM Normal respiratory effort and able to speak in complete sentences. ?Clear to auscultation bilaterally. ?No crackles, rales, rhonchi, wheezes heard. CARDIAC SYSTEM Regular rate and rhythm. ?S1 and S2 heard no murmurs. ?Radial pulses intact bilaterally MSK Hands: ?Good certified maintenance welder strength bilaterally. No deformities noted. ?No synovitis noted to the MCPs, PIPs or DIPs. ?No tenderness to palpation of these joints. Wrists: ?Bilateral wrist fusion. ?No tenderness to palpation or synovitis noted to the wrists. Elbows: Full range of motion without pain. No tenderness, weakness, swelling, increased warmth or erythema. Shoulders: Full range of motion without pain. No tenderness, weakness, swelling, increased warmth or erythema. Hips: Full range of motion without pain. Hip bursa: No tenderness to palpation Knees: ?Full range of motion. ?No tenderness, swelling, increased warmth or erythema.?No effusion or crepitations Ankles: Left ankle with paramalleolar swelling at the medial and lateral malleolus with TTP of the subtalar joint Feet: ?Negative squeeze Tender points:?No tenderness to palpation of the bilateral trapezius, supraspinatus, greater trochanters, anterior costochondral junctions, bilateral gluteal areas, bilateral suboccipital muscle insertions SKIN Skin intact without rashes. Results Reviewed Results Reviewed: Laboratory Tests 06/25/24 01/07/25 12:36 10:42 WBC 9.0 RBC 4.63 Hgb 13.3 Hct 42.4 MCV 91.6 Plt Count 420 H D ESR 75 H 10 Sodium 141 143 Potassium 3.8 4.2 Chloride 103 109 H Carbon Dioxide 29 26 BUN 10 16 Creatinine 0.69 0.63 Total Bilirubin 0.6 AST 54 H ALT 59 H C-Reactive Protein 4.68 H 0.24 Albumin 4.1 Laboratory Tests 06/25/24 12:36 Cycl Citrul Peptide IgG >250 H Hepatitis A IgM Ab Nonreactive Hep Bs Antigen Negative Hep Bs Antibody REACTIVE Hep B Core Total Ab Reactive Hep B Core IgM Ab NON-REACTIVE Hepatitis C Ab (EIA) Nonreactive HIV 1&2 Ab/P24 Ag 4thGn Nonreactive TB Test (T-Spot) Com Negative XR Bilat Feet 08/2024 FINDINGS (Left): Diffuse demineralization. Pes planus. Degenerative changes at the talonavicular and calcaneocuboid joints with hypertrophic change and narrowing. Degenerative changes at the midfoot and tarsometatarsal joints. Mild degenerative changes at the first metatarsophalangeal joint. FINDINGS (Right): Diffuse demineralization. Pes planus. Moderate degenerative changes with hypertrophic change and narrowing at the talonavicular joint. Mild degenerative changes in the first metatarsophalangeal joint. Degenerative changes in the midfoot. Possible erosion along the lateral aspect of the fifth metatarsal head. Assessment & Plan Assessment & Plan (1) Seropositive rheumatoid arthritis: Comment: ++RF +++ CCP dx around 2017 MTX [id number] was effective but DC due to hair loss Enbrel started 06/2024 effective Code(s): M05.9 - Rheumatoid arthritis with rheumatoid factor, unspecified Category: Medical Plan: #Seropositive Erosive RA Patient is a 54 y.o female with seropositive erosive rheumatoid arthritis here today for follow up. Currently doing well off prednisone but complaining of left ankle pain and swelling. Tenderness to palpation of the subtalar joint. We will schedule a ultrasound guided procedure for steroid injection of the subtalar joint Plan - Enbrel 50mg SC weekly - US guided injection of left subtalar joint - Labs today: CBC, CMP, ESR, CRP, hepatitis panel, T spot - RTC 4 months (2) Encounter for monitoring of etanercept therapy: Code(s): Z51.81 - Encounter for therapeutic drug level monitoring; Z79.620 - assisted (current) use of immunosuppressive biologic Category: Medical Plan: #Long-term Use of TNF Inhibitors: Enbrel Discussed with the patient the benefits and risks of TNF inhibitors for the management of the rheumatic condition Benefits include reduce pain, maintenance of remission and reduction of flares as well as ?progression of the disease Risks include injection sites/infusion reactions, serious infections (such as bacterial infections, opportunistic infections), malignancy, delaminating syndromes, autoimmune phenomena, CHF exacerbations, palmar plantar psoriasis and cytopenias Recommended rotating injection sites, and holding medication during and for up to 1 week after resolution of a febrile illness or open skin wound Plan I spent 30 minutes reviewing the record and labs, taking a history, examining the patient, discussing the treatment plan and documenting in the medical record Medications: Refilled Enbrel SureClick (etanercept) 50 mg subcut QWEEK 4 mL 3RF NS M05.9 - Rheumatoid arthritis with rheumatoid factor, unspecified Coding Level of Care Code Est Pt Level 4 (52610) Complex EM visit Add On G2211 Diagnoses Seropositive rheumatoid arthritis M05.9 Encounter for monitoring of etanercept therapy Z51.81; Z79.620
[2025-04-15 09:31] VITALS: BP 115/72; PULSE 66; RESP 16; O2SAT 98; BMI 28.4
--- OUTSIDE RECORDS SUMMARY | 2025-04-15 09:39 | XMS_ITS | Clinical Summary ---
Author Organization [employer] Address [address] [facility] [address] [place] [address] Care Team Providers Care Dry Wall Nailer Name Role Phone Unavailable Primary Care Provider [...] Screening 1969 SDOH Screening 1969 Sigmoidoscopy 1969 Disability Screening 1969 Alcohol/Substance Use Screening 1981 Tobacco Screening [...] age to complete this topic Meningococcal B Vaccine Aged Out No l onger eligible based on patient's age to complete this topic Meningococcal Vaccine Aged Out No carmen marcus eligible based on patient's age to complete this topic RSV under 20 months Aged Out No longe r eligible based on patient's age to complete this topic Rotavirus Vaccines Aged Out No longer eligible based on patient's age to complete this topic Insurance [facility] Member Subscriber Plan / Payer (Ef fective 2022-Present) Name:Pauline Rapp Relation to Subscriber:Self Name:Pauline Rapp Payer ID:Not on file Type:Not on file Address: [address] [address]
== END 2025-04-15 10:12 | disposition home or self-care (01) ==
LOC: HO.RHE 09:10
PROVIDERS: PCP Family Medicine; Visit Provider Student in an Organized Health Care Education/Training Program
DX: M05.79 Rheumatoid arthritis with rheumatoid factor of multiple sites without organ or systems involvement (principal); Z51.81 Encounter for therapeutic drug level monitoring; Z79.620 Long term (current) use of immunosuppressive biologic
CPT/HCPCS: 99214; G2211

== ENCOUNTER 2025-04-15 09:09 | Outpatient (REF) | payer MEDICAID, SELFPAY ==
[2025-04-15 10:39] LABS: MANUAL DIFF FLAG NO
[2025-04-15 10:46] LABS: Basophils Percent Auto 0.5 % (0-2); Eosinophils Absolute Auto 0.2 X10*3/uL (0.0-0.4); Hematocrit 41.3 % (37.0-47.0); Imm Gran Abs Auto 0.03 X10*3/uL (0.00-0.03); Imm Gran Pct Auto 0.4 % (0.0-0.4); Lymphocytes Absolute Auto 1.5 X10*3/uL (1.2-4.9); Lymphocytes Percent Auto 18.3 % (20-40); Mean Corpuscular HGB Conc 31.5 g/dl (31.0-35.0); Mean Corpuscular Hemoglobin 28.5 pg (27.0-33.0); Mean Corpuscular Volume 90.6 fL (80.0-98.0); Mean Platelet Volume 10.5 fL (9.4-12.3); Monocytes Absolute Auto 0.6 X10*3/uL (0.1-1.2); Monocytes Percent Auto 6.9 % (2-11); Neutrophils Absolute Auto 6.1 x10*3/uL (2.0-8.3); Neutrophils Percent Auto 71.9 % (45-73); Platelet Count 370 X10*3/uL (160-400); Red Blood Count 4.56 X10*6/uL (4.20-5.50); Red Cell Distribution Width 13.4 % (11.0-16.0); White Blood Count 8.4 X10*3/uL (4.8-10.8)
[2025-04-15 11:24] LABS: Erythrocyte Sedimentation Rate 13 MM/HR (0-20)
[2025-04-15 11:36] LABS: HBc Num1 8.69 S/CO (0.00-0.79); HBsAGNum1 0.28 S/CO (0.00-0.99); Hepatitis A Antibody IgM 0.18 Index (0-0.79); Hepatitis B Surface Antigen Negative (Negative); ~Hepatitis A Antibody IgM Nonreactive (Nonreactive); ~Hepatitis B Surface Antibody REACTIVE (Nonreactive); ~Hepatitis C Antibody Nonreactive (Nonreactive)
[2025-04-15 11:41] LABS: Alanine Aminotransferase 46 U/L (0-31); Albumin Level 4.2 g/dL (3.5-5.0); Alkaline Phosphatase 99 U/L (39-117); Anion Gap 10 (12-20); Aspartate Amino Transferase 38 U/L (5-31); Bilirubin Total 0.5 mg/dL (0.0-1.0); Blood Urea Nitrogen 13 mg/dL (9-16); Calcium 9.6 mg/dL (8.4-10.2); Carbon Dioxide 26 mmol/L (22-29); Chloride 111 mmol/L (96-108); Estimated Glomerular Filt Rate > 60; Glucose Random 95 mg/dL (60-115); Potassium 4.8 mmol/L (3.3-5.1); Sodium 142 mmol/L (135-145); Total Protein 7.4 g/dL (6.5-8.0)
[2025-04-15 13:30] LABS: HBc Num2 8.42 S/CO; HBc Num3 8.56 S/CO; Hepatitis B Core Antibody Reactive (Nonreactive)
[2025-04-18 00:34] LABS: TS Negative Control Passed; TS Panel A 0; TS Panel B 0; TS Positive Control Passed; TSpotTB Negative (Negative)
== END 2025-04-15 09:10 | disposition home or self-care (01) ==
LOC: HO.LAB 09:09
PROVIDERS: Visit Provider Student in an Organized Health Care Education/Training Program
DX: M05.9 Rheumatoid arthritis with rheumatoid factor, unspecified (principal); Z79.620 Long term (current) use of immunosuppressive biologic; Z51.81 Encounter for therapeutic drug level monitoring
CPT/HCPCS: 36415; 80053; 85025; 85652; 86140; 86481; 86704; 86706; 86709; 86803; 87340; 99212

== ENCOUNTER 2025-04-25 08:58 | Outpatient (REF) | payer OTHER, SELFPAY ==
--- OUTSIDE RECORDS SUMMARY | 2025-04-25 09:17 | XMS_ITS | Clinical Summary ---
Author Organization [employer] Address [address] [facility] [address] [place] [address] Care Team Providers Care Superintendent Sales Name Role Phone Unavailable Primary Care Provider [...] - 2023-2 5 season) 2024 Influenza Vaccine (Season Ended) 2025 RSV Patients and Pa tients Aged 60 [...] patient's age to complete this topic Insurance [facility]
--- NOTE | 2025-04-25 12:51 | PM.PROC ---
Brief Operative Note Date of procedure: 04/25/25 Pre-op diagnosis: RIght Ankle OA Post-op diagnosis: same Procedure: Date: 04/25/25 Study Type: Limited Ultrasound with Guidance of needle placement Indication: Pain in left ankle Study Site: Left ankle Equipment: [employer] Brief History: Patient is a 54-year-old female with seropositive erosive rheumatoid arthritis currently on Enbrel monotherapy with significant improvement in her joints except for left ankle pain with tenderness to palpation of the subtalar joint. Relevant meds: ?Enbrel XR Images reviewed: XR left ankle 08/2024 Findings: ?Orthogonal views of the left ankle were obtained in grayscale and Doppler. Procedure: ?After obtaining informed consent for an ultrasound-guided and glucocorticoid injection of the left ankle subtalar and tibiotalar joints were identified with ultrasound and revealed osteophytic changes consistent with osteoarthritis. ?The area of interest was marked and then sterilely prepped with chlorhexidine and anesthetized with lidocaine spray. ?A 22 gauge 1.5 in needle was advanced into the synovial cavity under direct ultrasound visualization using in plane technique. ?40 mg of triamcinolone was injected through the same needle. ?The procedure was well tolerated. This procedure was done for both the subtalar and tibiotalar joint of the left ankle Impressions: ?Osteoarthritic changes of the left ankle Condition: stable
== END 2025-04-25 08:59 | disposition home or self-care (01) ==
LOC: HO.US 08:58
PROVIDERS: Visit Provider Student in an Organized Health Care Education/Training Program
DX: M19.071 Primary osteoarthritis, right ankle and foot (principal)
CPT/HCPCS: 20611; J3301

== ENCOUNTER → 2025-04-25 08:58 | Outpatient (BNV) | payer OTHER, SELFPAY | PROVIDERS: Visit Provider Student in an Organized Health Care Education/Training Program | DX: M19.071 Primary osteoarthritis, right ankle and foot (principal) | CPT/HCPCS: 20605; 76942 ==

== ENCOUNTER 2025-08-15 08:26 | Outpatient (REF) | payer OTHER, SELFPAY ==
[2025-08-15 13:12] LABS: MANUAL DIFF FLAG NO
[2025-08-15 13:34] LABS: Hematocrit 41.5 % (37.0-47.0); Hemoglobin 12.9 g/dl (12.0-16.0); Imm Gran Abs Auto 0.03 X10*3/uL (0.00-0.03); Imm Gran Pct Auto 0.3 % (0.0-0.4); Lymphocytes Absolute Auto 1.7 X10*3/uL (1.2-4.9); Mean Corpuscular HGB Conc 31.1 g/dl (31.0-35.0); Mean Corpuscular Hemoglobin 28.5 pg (27.0-33.0); Mean Corpuscular Volume 91.8 fL (80.0-98.0); NRBC Abs Auto 0.000 X10*3/uL (0.0-0.012); NRBC Pct Auto 0.0 /100WBC (0.0-0.2); Platelet Count 454 X10*3/uL (160-400); Red Blood Count 4.52 X10*6/uL (4.20-5.50); White Blood Count 10.9 X10*3/uL (4.8-10.8)
[2025-08-15 14:01] LABS: Alanine Aminotransferase 36 U/L (0-31); Albumin Level 4.3 g/dL (3.5-5.0); Alkaline Phosphatase 129 U/L (39-117); Anion Gap 12 (12-20); Aspartate Amino Transferase 30 U/L (5-31); Blood Urea Nitrogen 8 mg/dL (9-16); Calcium 9.6 mg/dL (8.4-10.2); Carbon Dioxide 28 mmol/L (22-29); Chloride 107 mmol/L (96-108); Estimated Glomerular Filt Rate > 60; Potassium 4.7 mmol/L (3.3-5.1); Sodium 142 mmol/L (135-145); Total Protein 8.0 g/dL (6.5-8.0)
[2025-08-18 13:54] LABS: Hepatitis B Viral DNA Qn - cp NOT DETECTED Log IU/mL (NOT DETECTED); Hepatitis B Viral DNA Qn-IU/mL NOT DETECTED (NOT DETECTED)
== END 2025-08-15 08:27 | disposition home or self-care (01) ==
LOC: HO.HKASLDS 08:26
PROVIDERS: Visit Provider Student in an Organized Health Care Education/Training Program
DX: Z51.81 Encounter for therapeutic drug level monitoring (principal); M05.9 Rheumatoid arthritis with rheumatoid factor, unspecified; Z79.631 Long term (current) use of antimetabolite agent; Z79.899 Other long term (current) drug therapy
CPT/HCPCS: 36415; 80053; 85025; 85652; 86140; 87517; 99212

== ENCOUNTER 2025-08-15 08:26 | Outpatient (AMB) | payer OTHER, SELFPAY ==
--- OUTSIDE RECORDS SUMMARY | 2025-08-14 08:00 | XMS_ITS | Encounter Summary ---
Author Organization [facility] Address [address] [place] [address] Care Team Providers Care Test Consultant Name Role Phone Kristen James DO Primary Care Provider [phone] Reason for Referral * Consultation (Routine) - Authorized Specialty Diagnoses / Procedures Referred By Khloe ospina Referred To Contact Gastroenterology Diagnoses Colon cancer screening Raúl Watson PA [address] [place] [address] Phone: tel: fax: Gastroenterology [facility] [address] [facility] 175 [facility] [address] [place] [address] Phone: tel: fax: Referral ID Status Reason Start Date Expiration Date Visits Requested Visits Authorized [id number] Authorized Specialty Services Required 08/14/2025 08/14/2026 1 1 * Consultation (Routine) - Pending Review Specialty Diagnoses / Procedures Referred By Khloe ospina Referred To Contact Optometry Diagnoses Health maintenance examination Raúl Watson PA [address] [place] [address] Phone: tel: fax: [facility] [address] Phone: tel: fax: Referral ID Status Reason Start Date Expiration Date Visits Requested Visits Authorized [id number] Pending Review Specialty Services Required 08/14/2025 08/14/2026 1 1 * Imaging (Routine) - Pending Review Specialty Diagnoses / Procedures Referred By Contac t Referred To Contact Radiology Diagnoses Flank pain Procedures US Retroperitoneal Complete Raúl Watson PA [address] [place] [address] Phone: tel: fax: [address] Phone: tel: Referral ID Status Reason Start Date Expiration Date V isits Requested Visits Authorized [id number] Pending Review 08/14/2025 08/14/2026 1 1 Reason for Visit * Reason Comments Physical Exam Encounter Details Date Type Department Care Team (Late st Contact Info) Description 08/14/2025 8:00 AM EDT Office Visit Internal Medicine - [address] [phone] Raúl Watson PA [address] [place] [address] Health maintenance examination (Primary Dx); Flank pain; Rheumatoid arthritis with positive rheumatoid factor, involving unspecified site (CMS/HCC V24, CMS/HCC V28); Myalgia; Insomnia, unspecified type; Colon cancer screening; Immunization due Social History Tobacco Use Types Packs/Day Years Used Date Smoking Tobacco: Never Smokeless Tobacco: Never Tobacco Cessation:Counseling Given: Not Answered Alcohol Use Standard Drinks/Week Comments Never 0 [...] care for your loved ones. For example, child's nurse or elderly care for an older adult? [...] What is your living situation? 1 11/25/2023 Interpersonal Safety Answer Date Record ed Physical Abuse 06/05/2025 Verbal Abuse 06/05/2025 Comments No Sex and Gender Information Value Date Recorded Sex Assigned at Not on file Legal Sex Female 4:17 AM EST Gender Identity Not on file Sexual Orientation Not on file documented as of this encounter Last Filed Vital Signs Vital Sign Reading Time Taken Comments Blood Pressure 108/62 08/14/2025 8:04 AM EDT Pulse 68 08/14/2025 8:04 AM EDT Temperature - - Respiratory Rate 16 08/14/2025 8:04 AM EDT Oxygen Saturation - - Inhaled Oxygen Concentration - - Weight 78 kg (172 lb) 08/14/2025 8:04 AM EDT Height - - Body Mass Index 27.76 06/19/2025 9:13 AM EDT documented in this encounter Progress Notes * Liz Isaacs MA - 08/14/2025 8:00 AM EDTAddended by: LIZ ISAACS on: 08/14/2025 09:15 AM Modules accepted: Orders * GLENYS Garnett - 08/14/2025 8:00 AM EDT CHIEF COMPLAINT: Physical Exam IDENTIFIER:Pauline Rapp is a 54 y.o. here today for evaluation of general medical health. 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 HPI: Pauline Rapp is here today for routine physical exam. Had hernia repair recently. Denies recent hospitalizations otherwise. No exercise. Reports diet is well balanced but low appetite. UTD with eye.Due for dental, lapel stitcher. Reports lower back pain right side. Ongoing for over 6 months. She did pass a stone prior to this. Worse with peeing. Tried tylenol without relief. No radiation of pain. Denies fevers, chills, hematuria. She wants lab testing for vitamins and hormones. HM: Due for mammogram (she has implants), colonoscopy, flu vaccine. ROS: GENERAL: No malaise, significant weight loss or fever HEENT: No changes in hearing or vision, nose bleeds or other nasal problems NECK: No lumps, goiter, pain or significant neck swelling RESPIRATORY: No cough, wheezing or shortness of breath CARDIOVASCULAR: No chest pain, leg swelling or palpitations BREAST: no lumps, discharge, pain or change in skin GI: No abdominal discomfort, blood in stools or black stools : See HPI BAND BUILDER: No abnormal vaginal bleeding or abnormal vaginal discharge. MUSCULOSKELETAL: See HPI SKIN: No lesions, rash or itching PSYCH: No sleep disturbance, mood disorder or recent psychosocial stressors. HEMATOLOGY/LYMPHOLOGY No prolonged bleeding, easy bruisability or swollen nodes ENDOCRINE: No cold or heat intolerance, polyuria, polydipsia or goiter. NEURO: No persistent headache, syncope, seizures, weakness or numbness PAST MEDICAL HISTORY: Patient Active Problem List Diagnosis Date Noted Rheumatoid arthritis (CMS/[facility] V24, CMS/[facility] V28) 01/21/2025 Insomnia 01/21/2025 Myalgia 06/28/2024 PAST SURGICAL HISTORY: Past Surgical History: Procedure Laterality Date BREAST SURGERY PROCEDURE: ID BREAST AUGMENTATION WITH IMPLANT HERNIA REPAIR PROCEDURE: LAPAROSCOPY, INGUINAL HERNIA REPAIR HERNIA REPAIR Right 06/05/2025 laparoscopic repair with mesh of a recurrent right inguinal hernia (Dr. Kian Vazquez) HYSTERECTOMY PROCEDURE: HISTORICAL HYSTERECTOMY OTHER SURGICAL HISTORY IMMUNIZATIONS/INJECTIONS: Most Recent Immunizations Administered Date(s) Administered Pfizer SARS-CoV-2 COVID-19, mRNA, LNP-S, preservative free 04/08/2021 Tdap Tetanus diptheria acellular pertussis (Boostrix; Adacel) 7yo and older 03/18/2024 HEALTH MAINTENANCE: Health Maintenance Topic Date Due Breast Cancer Screening Never done Hepatitis B Vaccines (1 of 3 - 19+ 3-dose series) Never done Cervical Cancer Screening: Pap Smear Never done Pneumococcal Vaccine: 50+ Years (1 of 1 - PCV) Never done Zoster Vaccines (1 of 2) Never done Colorectal Cancer Screening: Colonoscopy Never done COVID-19 Vaccine (3 - 2024- season) 2025 Influenza Vaccine (1) 07/21/2025 Social Influencers of Health Screening 09/25/2025 Cholesterol Screening (Lipid Panel) 09/19/2028 DTaP,Tdap,and Td Vaccines (2 - Td or Tdap) 03/18/2034 RSV Immunization Adult Patients (1 - 1-dose 75+ series) 2044 Hepatitis C Screening Completed Depression Screening Completed HIB Vaccines Aged Out IPV Vaccines Aged Out Hepatitis A Vaccines Aged Out MMR Vaccines Aged Out Varicella Vaccines Aged Out Meningococcal ACWY Vaccine Aged Out Meningococcal B Vaccine Aged Out HPV Vaccines Aged Out RSV Immunization Patients Under 20 months Aged Out HIV Screening Discontinued SOCIAL HISTORY: Social History Tobacco Use Smoking status: Never Smokeless tobacco: Never Substance Use Topics Alcohol use: Never FAMILY HISTORY: Family History Problem Relation Name Age of Onset Diabetes Mother ACTIVE MEDICATIONS: No outpatient medications have been marked as taking for the 08/14/25 encounter (Office Visit) with GLENYS Garnett. ALLERGIES: No Known Allergies PHYSICAL EXAM: Visit Vitals BP 108/62 Pulse 68 Resp 16 Wt 78 kg (172 lb) BMI 27.76 kg/m?? OB Status Perimenopausal Smoking Status Never BSA 1.88 m?? Body mass index is 27.76 kg/m??. APPEARANCE: Alert and in no acute distress EYES: PERRLA, conjunctiva and sclera normal. EARS: External ears normal. Canals clear. TMs normal. NOSE/SINUS: Nares normal. Septum midline. Mucosa normal. No drainage or sinus tenderness. THROAT: no erythema or exudates NECK: Neck supple, no adenopathy, thyroid symmetric and of normal size HEART: RRR with normal S1 and S2 ,no murmurs, no gallops, no JVD appreciated LUNG: clear to auscultation BREAST (FEMALE): Deferred to lapel stitcher LYMPH NODES: grossly normal ABDOMEN: Bowel sounds normoactive, no bruits, soft, non-tender, without organomegaly or palpable masses BAND BUILDER (FEMALE): Deferred to lapel stitcher BACK: No pain to palpation with good flexion and extension EXTREMITIES: Extremities warm and well perfused without clubbing, cyanosis, or edema NEURO: Awake, alert and oriented x 3 with symmetrical reflexes SKIN: Skin color, texture, turgor normal. No rashes or lesions. IMPRESSION: 1. Health maintenance examination 2. Flank pain 3. Rheumatoid arthritis with positive rheumatoid factor, involving unspecified site (CMS/HCC V24, CMS/HCC V28) 4. Myalgia 5. Insomnia, unspecified type 6. Colon cancer screening PLAN: Physical exam: Patient presented for evaluation of general health. As part of this visit, we reviewed the following issues which are considered an essential part of preventative health in this age group. - Colon cancer screening (colonoscopy every 10 years/annual FOBT plus flexi sigmoidoscopy every 5 years/double-contrast BE every 5 years/Cologuard every 3 years/Annual FOBT) - ordered - Cervical cancer testing every 1-5 years - patient is up-to-date - Blood pressure annual screening performed - Cholesterol screening every five years - ordered - Osteoporosis prevention including calcium/vitamin D intake, weight bearing exercise & smokingcessation - Nutritional and exercise counseling - patient advised to pursue at least 30 minutes of exercise most days of the week, limit portion sizes, eat breakfast, and avoid eating after dinner - Counseling of injury prevention including fire prevention, smoke alarms and seat belt usage - Screening for depression - over the past TWO WEEKS, been bothered by little INTEREST or PLEASURE in doing things or by feeling DOWN, DEPRESSED, or HOPELESS? No - Screening for domestic abuse - Education about skin cancer - Recommendations about immunizations - patient provided with flu vaccine - Recommendation of an eye exam for glaucoma every 2-4 years in this age range - patient referred - Screening for substance abuse (including tobacco, alcohol, and recreational drugs) - see Substance & Sexuality section of medical record - Genetic cancer risk screening - NO INDICATION: Hereditary Cancer Syndrome Risk Assessment completed and evaluated. No indication found for genetic testing at this time. - In addition to reviewing these issues, I have reviewed the following sections of the chart: Past Medical History, Social History, and Social History - Did you have a dental visit in the last 12 months? No - Did you have a dental problem in the last 6 months? No Right flank pain: With associated dysuria and history of nephrolithiasis. Considering sacroiliitis,nephrolithiasis, UTI. I have ordered UA with culture, BMP and retroperitoneal ultrasound. Orders Placed This Encounter Procedures US Retroperitoneal Complete Urinalysis with reflex microscopic and culture Basic metabolic panel Vitamin D 25 hydroxy Thyroid stimulating hormone with reflex to free t4 and free t3 Lipid panel with reflex to direct LDL Iron and TIBC Vitamin B12 and folate Ambulatory referral to Optometry Ambulatory referral to Gastroenterology ADDITIONAL ORDERS: US RETROPERITONEAL COMPLETE AMB REFERRAL TO OPTOMETRY AMB REFERRAL TO GASTROENTEROLOGY We have discussed the above medication(s) at length. I have explained the indications as well as common side effects and risks. The patient understands and accepts these risks and wishes to proceed with the pharmacological treatment. All of the patient's questions were answered at this time. Pt voices understanding and is in agreement with the above plan. Symptoms and/or concerns that should warrant emergency evaluation/treatment have been discussed. Follow up evaluation will be based upon the plan as stated. If any questions should arise in the interim/future please contact the officefor assistance. Today's documentation was made using voice recognition software.This note may contain grammatical errors secondary to this software. GLENYS Garnett on 08/14/2025 at 8:28 AM EDT documented in this encounter Plan of Treatment Upcoming Encounters Date Type Department Care Team (Late st Contact Info) Description 08/25/2025 9:45 AM EDT Appointment [facility]trasound - [facility] [address] [place], [place] [phone] Scheduled Orders Name Type Priority Associated Diagnoses Orde r Schedule US Retroperitoneal Complete Imaging Routine Flank pain Expected: 08/14/2025, Expires: 08/14/2026 Scheduled Referrals Name Type Priority Associated Diagnoses Order Schedule Ambulatory referral to Optometry Outpatient Referral Routine Health maintenance examination 1 Occurrences starting 08/14/2025 until 08/14/2026 Ambulatory referral to Gastroenterology Outpatient Referral Routine Colon cancer screening 1 Occurrences starting 08/14/2025 until 08/14/2026 documented as of this encounter Results * Vitamin B12 and folate (08/14/2025 9:01 AM EDT) [facility] Vitamin B-12 679 250 - 900 pcg/mL LAB CHEMISTRY METHOD 08/14/2025 1:[address] [facility] Folate 15.3 2.8 - 17.0 ng/ml LAB CHEMISTRY METHOD 08/14/2025 1:[address] [facility] Blood Venous blood specimen / Unknown Venipuncture / Unknown 08/14/2025 9:01 AM EDT 08/14/2025 9:01 AM EDT Raúl VERONICA LAB BLOOD ORDERABLES Fi nal Result [facility] [address] [place] [address], * Iron and TIBC (08/14/2025 9:01 AM EDT) [facility] Iron 88 40 - 150 mcg/dL LAB CHEMISTRY METHOD 08/14/2025 1:[address] [facility] TIBC 353 250 - 450 mcg/dL LAB CHEMISTRY METHOD 08/14/2025 1:[address] [facility] Iron Saturation 25 15 - 50 % LAB CHEMISTRY METHOD 08/14/2025 1:[address] [facility] Blood Venous blood specimen / Unknown Venipuncture / Unknown 08/14/2025 9:01 AM EDT 08/14/2025 9:01 AM EDT Raúl VERONICA LAB BLOOD ORDERABLES Fi nal Result Performing Organization Address City/[facility]/ZIP Co de Phone Number [facility] [address] [place] [address], [place] [phone] * Lipid panel with reflex to direct LDL (08/14/2025 9:01 AM EDT) Cholesterol 172 0 - 200 mg/dL LAB CHEMISTRY METHOD 08/14/2025 1:[address] [facility] Triglycerides 82 0 - 150 mg/dL LAB CHEMISTRY METHOD 08/14/2025 1:[address] [facility] HDL 72 >=40 mg/dL LAB CHEMISTRY METHOD 08/14/2025 1:[address] [facility] LDL Calculated 84 0 - 100 mg/dL LAB CHEMISTRY METHOD 08/14/2025 1:[address] [facility] Comment:Estimated LDL Calcul ated using equation: Total cholesterol - HDL cholesterol - (Triglycerides/5) VLDL Cholesterol Jose 16.4 mg/dL LAB CHEMISTRY METHOD 08/14/2025 1:[address] [facility] Non HDL Chol. (LDL+VLDL) 100 <145 mg/dL LAB CHEMISTRY METHOD 08/14/2025 1:[address] [facility] Chol/HDL Ratio 2.4 0.0 - 4.4 LAB CHEMISTRY METHOD 08/14/2025 1:[address] [facility] Blood Venous blood specimen / Unknown Venipuncture / Unknown 08/14/2025 9:01 AM EDT 08/14/2025 9:01 AM EDT Raúl VERONICA LAB BLOOD ORDERABLES Fi nal Result Performing Organization Address City/[facility]/ZIP Co de Phone Number [facility] [address] [place] [address], [place] [phone] * Thyroid stimulating hormone with reflex to free t4 and free t3 (08/14/2025 9:01 AM EDT) [facility] TSH 1.05 0.40 - 4.00 mcIU/mL LAB CHEMISTRY METHOD 08/14/2025 2:[address] [facility] Blood Venous blood specimen / Unknown Venipuncture / Unknown 08/14/2025 9:01 AM EDT 08/14/2025 9:01 AM EDT Raúl VERONICA LAB BLOOD ORDERABLES Fi nal Result Performing Organization Address [facility]/ZIP Co de Phone Number [facility] [address] [place] [address], [place] [phone] * (ABNORMAL) Vitamin D 25 hydroxy (08/14/2025 9:01 AM EDT) [facility] Vit D, 25-Hydroxy 27.4(L) 30.0 - 80.0 ng/mL LAB CHEMISTRY METHOD 08/14/2025 2:[address] [facility] Blood Venous blood specimen / Unknown Venipuncture / Unknown 08/14/2025 9:01 AM EDT 08/14/2025 9:01 AM EDT Raúl VERONICA LAB BLOOD ORDERABLES Fi nal Result [facility] [address] [place] [address], [place] [phone] * Basic metabolic panel (08/14/2025 9:01 AM EDT) [facility] Sodium 139 133 - 145 mmol/L LAB CHEMISTRY METHOD 08/14/2025 1:[address] [facility] Potassium 4.9 3.5 - 5.5 mmol/L LAB CHEMISTRY METHOD 08/14/2025 1:[address] [facility] Chloride 104 96 - 110 mmol/L LAB CHEMISTRY METHOD 08/14/2025 1:[address] [facility] CO2 28 21 - 32 mmol/L LAB CHEMISTRY METHOD 08/14/2025 1:50 PM [facility] Anion Gap 7 3 - 11 LAB CHEMISTRY METHOD 08/14/2025 1:[address] [facility] Glucose 80 70 - 100 mg/dL LAB CHEMISTRY METHOD 08/14/2025 1:50 PM [facility] BUN 7 5 - 25 mg/dL LAB CHEMISTRY METHOD 08/14/2025 1:50 PM [facility] Creatinine 0.68 0.50 - 1.10 mg/dL LAB CHEMISTRY METHOD 08/14/2025 1:50 PM [facility] eGFR 103 >=60 mL/min/1. 73m2 LAB CHEMISTRY METHOD 08/14/2025 1:50 PM [facility] Comment:Calculation based on the Chronic Kidney Disease Epidemiology Collaboration (CKD-EPI) equation refit without adjustment for race. BUN/Creatinine Ratio 10.3 LAB CHEMISTRY METHOD 08/14/2025 1:50 PM [facility] Calcium 9.8 8.5 - 10.5 mg/dL LAB CHEMISTRY METHOD 08/14/2025 1:50 PM [facility] Blood Venous blood specimen / Unknown Venipuncture / Unknown 08/14/2025 9:01 AM EDT 08/14/2025 9:01 AM EDT Raúl VERONICA LAB BLOOD ORDERABLES Fi nal Result [facility] [address] [place] [address], documented in this encounter Visit Diagnoses Diagnosis Health maintenance examination- Primary Unspecified general medical examination Flank pain Abdominal pain, unspecified site Rheumatoid arthritis with positive rheumatoid factor, involving unspecified site ([facility] V24, [facility] V28) Myalgia Unspecified myalgia and myositis Insomnia, unspecified type Colon cancer screening Special screening for malignant neoplasms, colon Immunization due documented in this encounter Discontinued Medications Medication Sig Discontinue Reason Start Date End Da te oxyCODONE (ROXICODONE) 5 mg immediate release tablet Take 1 tablet (5 mg total) by mouth every 6 (six) hours if needed for severe pain. Max Daily Amount: 20 mg 06/05/2025 08/14/2025 documented as of this encounter Orders Immunization/Injection Count Last Ordered Date First Ordered Date INFLUENZA TRIVALENT, MDCK, 0 .5ML, PRESERVATIVE FREE (FLUCELVAX) 6MO AND OLDER 1 08/14/2025 documented in this encounter Additional Health Concerns Assessment Noted Time PHQ-9 Depression Total Score: 0 07/27/20 25 10:07 AM EDT documented as of this encounter Care Teams Test Consultant Relationship Specialty Start Date End Date Kristen James DO [address] [place], [place] [address] [address] PCP - General 06/28/23 documented as of this encounter
--- NOTE | 2025-08-15 08:40 | A.OFFVIS_ITS ---
Vital Signs 08/15/25 08:48 Height 5 ft 6 in Weight 171 lb 1.259 oz BMI 27.6 BP 115/70 Blood Pressure Location Rt brachial Position Sitting Pulse 67 Pulse Source Pulse Oximeter Pulse Oximetry (%) 98 Oxygen Delivery Method Room Air Intake Visit Reasons: RA Intake Note: Patient presents for RA follow up. [employer] Salesperson Required: Yes [employer] Salesperson Language: Supervisory It Specialist Services: [employer] Salesperson Offered & Declined Information Interpreted: non-clinical & clinical Allergies No Known Allergies Allergy (Verified 08/15/25 08:47) Medication List - Last Reconciled 08/15/25 by Danay Moreira MD diclofenac sodium 1% (Arthritis Pain (diclofenac)) 4 grams topical QID pantoprazole 20 mg PO DAILY HPI Comments Details: Patient is a 54-year-old female with seropositive erosive rheumatoid arthritis here today for follow up Interval History: Patient last seen 04/15/25 with me. At that time she was on Enbrel 50 mg weekly and prednisone 10 mg daily. She was in remission based on her examination and plan was to stop her prednisone - On Enbrel 50mg SC - Able to stop the prednisone without any issues - Tolerating weekly Enbrel - Complaining of left ankle pain Had US guided left ankle steroid injection 06/2025 Today - On Enbrel 50mg SC weekly - Stopped due to high co-pay from insurance - Now with right elbow pain - Ankle injection worked great! - Would like to go back on methotrexate, thinks her hair loss in the past was because of her Fe def anemia 2/2 fibroids Rheumatologic History: Seropositive RA ++RF +++ CCP dx around 2016 MTX [id number] was effective but DC due to hair loss Enbrel started 06/2024 effective. Initial history: This is a 53-year-old female with seropositive RA who presents as a new patient. She states that she has had diffuse joint pain since 2013. She was evaluated by a toppiece chopper in [place] around 2017 and diagnosed with rheumatoid arthritis. She was started on methotrexate, she took it for about 3 years and it was working relatively well. Patient however developed hair loss and she discontinued it. She then moved to [place], she has been followed at [facility], for 2 years. States that she was prescribed nabumetone. She does not recall being prescribed a DMARD. She continues to have diffuse joint pain and swelling especially her shoulders, wrists, hands, elbows, knees, feet, ankles. Denies any fevers or weight loss. Denies any history of DVT/PE. Denies skin rashes Current Rheumatology Medication(s): Enbrel 50mg SC weekly (not taking) [facility] Medical History (Updated 01/07/25 @ 12:49 by Danay Moreira MD) Encounter for monitoring of etanercept therapy Osteoarthritis Surgical History S/P laparoscopic hernia repair History of hysterectomy Family History Mother Diabetes Arthritis Brother Pancreas cancer Social History Household Members: Family Housing: House Alcohol intake: never Patient Tobacco Use Status: Never used Tobacco Review of Systems Const Details: Review of Systems Constitutional: Denies fever, chills, weight loss ENT: Denies vision changes, eye pain or eye redness, dental caries, dry mouth GI: Denies nausea, vomiting, diarrhea, abdominal pain, change in BM Pulm: Denies SOB, CAR, hemoptysis, wheezing Cards: Denies chest pain, palpitations Skin: Denies Raynaud's, rash, nail changes, photosensitivity, DRAMATIC TEACHER: Denies headaches, weakness, paresthesias, recurrent falls MSK: as per HPI All other systems reviewed and are unremarkable except noted above Physical Exam Exam Exam: Vital signs reviewed Physical Examination CONSTITUITIONAL Patient alert and cooperative. Well appearing and in no apparent painful distress MSK Hands * Right Hand: Able to make a fist. No swelling or tenderness to palpation of the MCPs, PIPs or DIPs. * Left Hand: Able to make a fist. No swelling or tenderness to palpation of the MCPs, PIPs or DIPs. Wrists * Right Wrist: Fixed wrist, no ROM. No swelling or TTP * Left Wrist: Fixed wrist, no ROM. No swelling or TTP Elbows * Right Elbow: Decreased ROM to extension. No swelling or TTP. No TTP of the medial epicondyle. TTP of the lateral epicondyle * Left Elbow: Full ROM. No swelling or TTP. No TTP of the medial epicondyle. No TTP of the lateral epicondyle Shoulders * Right shoulder: Full ROM. No swelling noted. No TTP of the AC joint. No TTP of the subacromial bursa. No TTP of the posterior shoulder * Left shoulder: Full ROM. No swelling noted. No TTP of the AC joint. No TTP of the subacromial bursa. No TTP of the posterior shoulder Knees * Right knee: Full ROM. No swelling noted. No TTP of the knee joint line. No TTP of pes anserine bursa * Left knee: Full ROM. No swelling noted. No TTP of the knee joint line. No TTP of pes anserine bursa. * Crepitations felt bilaterally Ankles * Right ankle: Good ankle dorsiflexion and plantar flexion. No swelling. No TTP of the ankle joint * Left ankle: Good ankle dorsiflexion and plantar flexion. No swelling. No TTP of the ankle joint Feet * Right foot: Negative squeeze test * Left foot: Negative squeeze test Tender points? * No tenderness to palpation of the bilateral trapezius, supraspinatus, anterior costochondral junctions, bilateral suboccipital muscle insertions SKIN Hyperpigmentation Vital Signs: Last Vital Signs Pulse 67 08/15/25 08:48 BP 115/70 08/15/25 08:48 Pulse Ox 98 08/15/25 08:48 Oxygen Delivery Method Room Air 08/15/25 08:48 BMI result Body Mass Index 27.6 Results Reviewed Results Reviewed: Laboratory Tests 04/15/25 04/15/25 04/15/25 10:38 10:39 Unknown WBC 8.4 RBC 4.56 Hgb 13.0 Hct 41.3 Plt Count 370 ESR 13 Sodium 142 Potassium 4.8 Chloride 111 H Carbon Dioxide 26 BUN 13 Creatinine 0.61 AST 38 H ALT 46 H C-Reactive Protein 0.20 Laboratory Tests 06/25/24 12:36 Cycl Citrul Peptide IgG >250 H Laboratory Tests 04/15/25 10:39 Hepatitis A IgM Ab Nonreactive Hep Bs Antigen Negative Hep Bs Antibody REACTIVE Hep B Core Total Ab Reactive Hepatitis C Ab (EIA) Nonreactive TB Test (T-Spot) Com Negative Assessment & Plan Assessment & Plan (1) Seropositive rheumatoid arthritis: Comment: ++RF +++ CCP dx around 2016 MTX [id number] was effective but DC due to hair loss Enbrel started 06/2024 effective Code(s): M05.9 - Rheumatoid arthritis with rheumatoid factor, unspecified Category: Medical Plan: #Seropositive Erosive RA Patient is a 54 y.o female with seropositive erosive rheumatoid arthritis here today for follow up. In a mild flare due to not being on Enbrel Does not want to continue Enbrel due to high co pay Willing to go back on methotrexate, does not think the hair loss previously was because of iron deficiency Plan - Stop Enbrel - Methotrexate 15mg weekly - Folic acid 4mg daily - Tylenol 1000mg bid - Labs today: CBC, CMP, ESR, CRP - RTC 4 months - Labs before visit: CBC, CMP, ESR, CRP (2) Encounter for methotrexate monitoring: Code(s): Z51.81 - Encounter for therapeutic drug level monitoring; Z79.631 - longterm (current) use of antimetabolite agent Plan: #Long-term Current Use of Methotrexate Discussed with patient the benefits and risks of methotrexate for managing their rheumatic condition Benefits include reduced pain, reduced mortality, maintenance of remission and reduction of flares Risks include oral ulcers, photosensitivity, hepatotoxicity, hematologic toxicity, pneumonitis, flu-like symptoms (especially day after administration), nodulosis, lymphomas ? Limit alcohol and avoid Bactrim ? Monitoring: CBC, BMP, LFTs every 3-4 months and hepatitis serologies as needed Plan I spent 30 minutes reviewing the record and labs, taking a history, examining the patient, discussing the treatment plan and documenting in the medical record Orders: Orders Erythrocyte Sedimentation Rate Today Z79.899 - Other half-way (current) drug therapy C Reactive Protein 4 Months Z79.899 - Other half-way (current) drug therapy Complete Blood Count Auto Diff Today Z79.899 - Other half-way (current) drug therapy Comprehensive Met. Panel Today Z79.899 - Other half-way (current) drug therapy C Reactive Protein Today Z79.899 - Other long distance operator (current) drug therapy Hepatitis B Viral DNA Qn Today Z79.899 - Other long distance operator (current) drug therapy Complete Blood Count Auto Diff 4 Months Z79.899 - Other long distance operator (current) drug therapy Comprehensive Met. Panel 4 Months Z79.899 - Other half-way (current) drug therapy Erythrocyte Sedimentation Rate 4 Months Z79.899 - Other half-way (current) drug therapy Medications: New methotrexate sodium 15 mg (6 x 2.5 mg) PO QWEEK 78 tabs 1RF 90 days M05.9 - Rheumatoid arthritis with rheumatoid factor, unspecified folic acid 4 mg (4 x 1 mg) PO DAILY 360 tabs 1RF 90 days M05.9 - Rheumatoid arthritis with rheumatoid factor, unspecified acetaminophen (Tylenol Extra Strength) 1,000 mg (2 x 500 mg) PO BID 360 tabs 1RF pain 90 days M05.9 - Rheumatoid arthritis with rheumatoid factor, unspecified Refilled diclofenac sodium 1% (Arthritis Pain (diclofenac)) apply to foot 4 grams topical QID 100 grams 5RF M19.90 - Unspecified osteoarthritis, unspecified site Coding Level of Care Code Est Pt Level 4 (52376) Complex EM visit Add On G2211 Diagnoses Seropositive rheumatoid arthritis M05.9 Encounter for methotrexate monitoring Z51.81; Z79.631
--- OUTSIDE RECORDS SUMMARY | 2025-08-15 08:46 | XMS_ITS | Clinical Summary ---
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
--- OUTSIDE RECORDS SUMMARY | 2025-08-15 08:47 | XMS_ITS | Clinical Summary ---
Author Organization [address] Building Address [address] [place] [address] Phone Care Team Providers Care Public Address System Mechanic Name Role Phone Kristen James DO Primary Care Provider [phone] Allergies No known active allergies Medications oxyCODONE (ROXICODONE) 5 mg immediate release tablet Take 1 tablet (5 mg total) by mouth every 6 (six) hours if needed for severe pain. Max Daily Amount: 20 mg 15 tablet 08/14/20 Discontinued Active Problems Problem Noted Date Diagnosed Date Rheumatoid arthritis (CMS/[facility] V24, [facility] V28) 01/21/2025 Insomnia 01/21/2025 Myalgia 06/28/2024 Overview (09/10/2024): + RA. [facility]. Seen in 2023 Resolved Problems Problem Noted Date Diagnosed Date Resolved Date Recurrent right inguinal hernia 05/26/2025 06/05/2025 Encounters Date Type Department Care Team Description 08/14/2025 8:00 AM EDT Office Visit Internal Medicine - [address] [phone] Raúl Watson PA Health maintenance examination (Primary Dx); Flank pain; Rheumatoid arthritis with positive rheumatoid factor, involving unspecified site (CMS/[facility] V24, CMS/[facility] V28); Myalgia; Insomnia, unspecified type; Colon cancer screening; Immunization due 06/19/2025 9:15 AM EDT Office Visit General Surgery [address] [phone] Kian Vazquez MD Recurrent right inguinal hernia (Primary Dx) 06/05/2025 7:35 AM EDT Anesthesia Event [facility] OR [address] [place] [phone] Miguel Whitney MD 06/05/2025 7:30 AM EDT - 06/05/2025 10:00 AM EDT Surgery [facility] OR [address] [place] [phone] Kian Vazquez MD LAPAROSCOPIC RIGHT INGUINAL HERNIA REPAIR W/MESH, [83434 (CPT )] 06/05/2025 6:08 AM EDT - 06/05/2025 1:17 PM EDT Hospital Encounter [facility] OR [address] [place] [phone] Kian Vazquez MD Discharge Disposition: Home or Self Care 05/27/2025 Telephone General Surgery [address] [phone] Kian Vazquez MD 05/26/2025 8:30 AM EDT Consult [address] [phone] Kian Vazquez MD Recurrent right inguinal hernia (Primary Dx); Rheumatoid arthritis with positive rheumatoid factor, involving unspecified site (CMS/HCC V24, CMS/[facility] V28) from Last 3 Months Immunizations Name Administration Dates Next Due Influenza trivalent, MDCK, 0 .5mL, preservative free (Flucelvax) 6mo and older 08/14/2025 Tdap Tetanus diptheria acell ular pertussis (Boostrix; Adacel) 7yo and older 03/18/2024 Surgical History Surgery Date Site/Laterality Comments HYSTERECTOMY PROCEDURE: HISTORICAL HYSTERECTOMY BREAST SURGERY PROCEDURE: KS BREAST AUGMENTATION WITH IMPLANT HERNIA REPAIR PROCEDURE: LAPAROSCOPY, INGUINAL HERNIA REPAIR OTHER SURGICAL HISTORY HERNIA REPAIR 06/05/2025 Right laparoscopic repair with mesh of a recurrent right inguinal hernia (Dr. Kian Vazqeuz) Medical History Medical History Date Comments History of uterine fibroid DX:Hi story of uterine fibroid History of anemia DX:History of anemia Hernia, inguinal Arthritis Joint pain Family History Medical History Relation Name Comments [...] for your loved ones. For example, children counselor or elderly care for an older adult? [...] Pulse 68 08/14/2025 8:04 AM EDT Temperature 36.3 C (97.3 F) 06/19/2025 9:13 AM EDT Respiratory Rate 16 08/14/2025 8:04 AM EDT Oxygen Saturation 97% 06/05/2025 11:20 AM EDT Inhaled Oxygen Concentration - - Weight 78 kg (172 lb) 08/14/2025 8:04 AM EDT Height 167.6 cm (5' 6 ) 06/19/2025 9:13 AM EDT Body Mass Index 27.76 06/19/2025 9:13 AM EDT Plan of Treatment Upcoming Encounters Date Type Department Care Team (Late st Contact Info) Description 08/25/2025 9:45 AM EDT Appointment [facility]ound [facility] [address] [place] [address] Health Maintenance Due Date Last Done Comments Breast Cancer Screening 1969 Hepatitis B Vaccines (1 of 3 - 19+ 3-dose series) 1988 Cervical Cancer Screening: Pap Smear 1990 Pneumococcal Vaccine: 50+ Years (1 of 1 - PCV) 2019 Zoster Vaccines (1 of 2) 2019 Colorectal Cancer Screening: Colonoscopy 10/23/2022 COVID-19 Vaccine (3 - 2024-2 6 season) 2025 04/08/2021, 03/17/2021 Social Influencers of Health Screening 09/25/2025 09/25/2024 Cholesterol Screening (Lipid Panel) 08/14/2030 08/14/2025, 09/19/2023 DTaP,Tdap,and Td Vaccines (2 - Td or Tdap) 03/18/2034 03/18/2024 RSV Immunization Adult Patients (1 - 1-dose 75+ series) 2044 Hepatitis C Screening Completed 09/19/2023 Depression Screening Completed 07/27/2025 Influenza Vaccine Completed 08/14/2025 HIB Vaccines Aged Out No longer eligi ble based on patient's age to complete this topic HIV Screening Discontinued HPV Vaccines Aged Out No longer eligi [...] to complete this topic RSV Immunization Patients Under 20 months Aged Out No longer eligible based on patient's age to complete this topic Varicella Vaccines Aged Out No longer eligible based on patient's age to complete this topic Medical Devices Implanted Type Area Tester Sound Device Identifier Shelf Expiration Date Model / Serial / Lot Fixation Sorbfx Enhanc 30 Fast Sorbafix For Laproscopy - Sna - [id number] Implanted:Qty: 1 on 06/05/2025 by Kian Vazquze MD at [facility] Internal and External Fixation Right: Inguinal CR BARD - DAVOL DIV 11/16/2025 [id number] / NA / [id number] Mesh [place] 37cm Optiflex Absrb Filt System - Sn/A - [id number] Implanted:Qty: 1 on 06/05/2025 by Kian Vazquez MD at [facility] Internal and External Fixation Right: Abdomen CR BARD - DAVOL DIV 11/16/2026 [id number] / N/A / [id number] Mesh 3dmax Lght Lg 4.1x6.2 R 4.1x6.2in - Sna - [id number] Implanted:Qty: 1 on 06/05/2025 by Kian Vazquez MD at [facility] Surgical Mesh Sling Implants Right: Inguinal CR BARD - DAVOL DIV 08/17/2029 [id number] / NA / [id number] Procedures Procedure Name Priority Date/Time Associated Diagnosis Comments LUNSFORD URINE CULTURE TUBE Routine 08/14/2025 9:01 AM EDT Flank pain URINALYSIS WITH REFLEX MICROSCOPIC AND CULTURE Routine 08/14/2025 9:01 AM EDT Flank pain URINALYSIS WITH REFLEX MICROSCOPIC AND CULTURE Routine 08/14/2025 9:01 AM EDT Flank pain BASIC METABOLIC PANEL Routine 08/14/2025 9:01 AM EDT Flank pain VITAMIN D 25 HYDROXY Routine 08/14/2025 9:01 AM EDT Rheumatoid arthritis with positive rheumatoid factor, involving unspecified site (CMS/HCC V24, CMS/HCC V28) THYROID STIMULATING HORMONE WITH REFLEX TO FREE T4 AND FREE T3 Routine 08/14/2025 9:01 AM EDT Rheumatoid arthritis with positive rheumatoid factor, involving unspecified site (CMS/HCC V24, CMS/HCC V28) LIPID PANEL WITH REFLEX TO DIRECT LDL Routine 08/14/2025 9:01 AM EDT Myalgia IRON AND TIBC Routine 08/14/2025 9:01 AM EDT Rheumatoid arthritis with positive rheumatoid factor, involving unspecified site (CMS/HCC V24, CMS/HCC V28) VITAMIN B12 AND FOLATE Routine 08/14/2025 9:01 AM EDT Insomnia, unspecified type TH AN ENDOTRACHEAL(NO CHARGE) Routine 06/05/2025 8:26 AM EDT KS LAP SURG REPR INITIAL INGUINAL HERNIA 06/05/2025 7:35 AM EDT Recurrent right inguinal hernia 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 HEPATITIS C SCREENING Routine 09/19/2023 from Last 3 Months or Most Recently Relevant to Health Maintenance Results * Urinalysis with reflex microscopic and culture (08/14/2025 9:01 AM EDT) Specific [place] Urine 1.016 1.003 - 1.030 LAB URINALYSIS - AUTOMATED METHOD 08/14/2025 11:45 AM [facility] pH, Urine 7.0 5.0 - 8.0 pH LAB URINALYSIS - AUTOMATED METHOD 08/14/2025 11:45 AM [facility] Leukocytes, Urine Negative Negative LAB URINALYSIS - AUTOMATED METHOD 08/14/2025 11:45 AM [facility] Nitrite, Urine Negative Negative LAB URINALYSIS - AUTOMATED METHOD 08/14/2025 11:45 AM [facility] Protein, Urine Negative <=Trace mg/dL LAB URINALYSIS - AUTOMATED METHOD 08/14/2025 11:45 AM [facility] Glucose, Urine Negative Negative mg/dL LAB URINALYSIS - AUTOMATED METHOD 08/14/2025 11:45 AM [facility] Ketones, Urine Negative Negative mg/dL LAB URINALYSIS - AUTOMATED METHOD 08/14/2025 11:45 AM [facility] Urobilinogen, Urine 0.2 0.2 - 1.0 mg/dL LAB URINALYSIS - AUTOMATED METHOD 08/14/2025 11:45 AM [facility] Bilirubin, Urine Negative Negative LAB URINALYSIS - AUTOMATED METHOD 08/14/2025 11:45 AM [facility] Blood, Urine Negative Negative LAB URINALYSIS - AUTOMATED METHOD 08/14/2025 11:45 AM [facility] Urine Urine specimen obtained by clean catch procedure / Unknown Non-blood Collection / Unknown 08/14/2025 9:01 AM EDT 08/14/2025 9:01 AM EDT us Raúl VERONICA LAB URINE ORDERABLES Fi nal Result [facility] [address] [place] [address], [place] [phone] * [place] urine culture tube (08/14/2025 9:01 AM EDT) Pathologist [facility] Extra Tube Hold for add-ons. 08/14/2025 3:01 PM EDT [facility] Comment:Auto resulted. Urine Urine specimen obtained by clean catch procedure / Unknown Non-blood Collection / Unknown 08/14/2025 9:01 AM EDT 08/14/2025 9:01 AM EDT Raúl VERONICA LAB URINE ORDERABLES Fi nal Result Performing Organization Address City/[facility]/ZIP Co de Phone Number [facility] [address] [place] [address], [place] [phone] * Thyroid stimulating hormone with reflex to free t4 and free t3 (08/14/2025 9:01 AM EDT) [facility] TSH 1.05 0.40 - 4.00 mcIU/mL LAB CHEMISTRY METHOD 08/14/2025 2:24 PM EDT [facility] Blood Venous blood specimen / Unknown Venipuncture / Unknown 08/14/2025 9:01 AM EDT 08/14/2025 9:01 AM EDT Raúl VERONICA LAB BLOOD ORDERABLES Fi nal Result [facility] [address] [place] [address], [place] [phone] * Vitamin B12 and folate (08/14/2025 9:01 AM EDT) [facility] Vitamin B-12 679 250 - 900 pcg/mL LAB CHEMISTRY METHOD 08/14/2025 1:56 PM EDT [facility] Folate 15.3 2.8 - 17.0 ng/ml LAB CHEMISTRY METHOD 08/14/2025 1:56 PM EDT [facility] Blood Venous blood specimen / Unknown Venipuncture / Unknown 08/14/2025 9:01 AM EDT 08/14/2025 9:01 AM EDT Raúl VERONICA LAB BLOOD ORDERABLES Fi nal Result Performing Organization Address City/[facility]/ZIP Co de Phone Number [facility] [address] [place] [address], [place] [phone] * Lipid panel with reflex to direct LDL (08/14/2025 9:01 AM EDT) Cholesterol 172 0 - 200 mg/dL LAB CHEMISTRY METHOD 08/14/2025 1:48 PM EDT [facility] Triglycerides 82 0 - 150 mg/dL LAB CHEMISTRY METHOD 08/14/2025 1:48 PM EDT [facility] HDL 72 >=40 mg/dL LAB CHEMISTRY METHOD 08/14/2025 1:48 PM EDT [facility] LDL Calculated 84 0 - 100 mg/dL LAB CHEMISTRY METHOD 08/14/2025 1:48 PM EDT [facility] Comment:Estimated LDL Calcul ated using equation: Total cholesterol - HDL cholesterol - (Triglycerides/5) VLDL Cholesterol Jose 16.4 mg/dL LAB CHEMISTRY METHOD 08/14/2025 1:48 PM EDT [facility] Non HDL Chol. (LDL+VLDL) 100 <145 mg/dL LAB CHEMISTRY METHOD 08/14/2025 1:48 PM EDT [facility] Chol/HDL Ratio 2.4 0.0 - 4.4 LAB CHEMISTRY METHOD 08/14/2025 1:48 PM EDT [facility] Blood Venous blood specimen / Unknown Venipuncture / Unknown 08/14/2025 9:01 AM EDT 08/14/2025 9:01 AM EDT Raúl VERONICA LAB BLOOD ORDERABLES Fi nal Result [facility] [address] [place] [address], [place] [phone] * Iron and TIBC (08/14/2025 9:01 AM EDT) Pathologist [facility] Iron 88 40 - 150 mcg/dL LAB CHEMISTRY METHOD 08/14/2025 1:32 PM EDT [facility] TIBC 353 250 - 450 mcg/dL LAB CHEMISTRY METHOD 08/14/2025 1:32 PM EDT [facility] Iron Saturation 25 15 - 50 % LAB CHEMISTRY METHOD 08/14/2025 1:32 PM EDT [facility] Blood Venous blood specimen / Unknown Venipuncture / Unknown 08/14/2025 9:01 AM EDT 08/14/2025 9:01 AM EDT Raúl VERONICA LAB BLOOD ORDERABLES Fi nal Result Performing Organization Address [facility]/ZIP Co de Phone Number [facility] [address] [place] [address], [place] [phone] * (ABNORMAL) Vitamin D 25 hydroxy (08/14/2025 9:01 AM EDT) [facility] Vit D, 25-Hydroxy 27.4(L) 30.0 - 80.0 ng/mL LAB CHEMISTRY METHOD 08/14/2025 2:24 PM EDT [facility] Blood Venous blood specimen / Unknown Venipuncture / Unknown 08/14/2025 9:01 AM EDT 08/14/2025 9:01 AM EDT us Raúl VERONICA LAB BLOOD ORDERABLES Fi nal Result [facility] [address] [place] [address], [place] [phone] * Basic metabolic panel (08/14/2025 9:01 AM EDT) Sodium 139 133 - 145 mmol/L LAB CHEMISTRY METHOD 08/14/2025 1:50 PM [facility] Potassium 4.9 3.5 - 5.5 mmol/L LAB CHEMISTRY METHOD 08/14/2025 1:50 PM [facility] Chloride 104 96 - 110 mmol/L LAB CHEMISTRY METHOD 08/14/2025 1:50 PM [facility] CO2 28 21 - 32 mmol/L LAB CHEMISTRY METHOD 08/14/2025 1:50 PM [facility] Anion Gap 7 3 - 11 LAB CHEMISTRY METHOD 08/14/2025 1:50 PM [facility] Glucose 80 70 - 100 mg/dL LAB CHEMISTRY METHOD 08/14/2025 1:50 PM [facility] BUN 7 5 - 25 mg/dL LAB CHEMISTRY METHOD 08/14/2025 1:50 PM [facility] Creatinine 0.68 0.50 - 1.10 mg/dL LAB CHEMISTRY METHOD 08/14/2025 1:50 PM [facility] eGFR 103 >=60 mL/min/1. 73m2 LAB CHEMISTRY METHOD 08/14/2025 1:50 PM [facility] Comment:Calculation based on the Chronic Kidney Disease Epidemiology Collaboration (CKD-EPI) equation refit without adjustment for race. BUN/Creatinine Ratio 10.3 LAB CHEMISTRY METHOD 08/14/2025 1:50 PM [facility] Calcium 9.8 8.5 - 10.5 mg/dL LAB CHEMISTRY METHOD 08/14/2025 1:50 PM [facility] Blood Venous blood specimen / Unknown Venipuncture / Unknown 08/14/2025 9:01 AM EDT 08/14/2025 9:01 AM EDT us Raúl VERONICA LAB BLOOD ORDERABLES Fi nal Result [facility] [address] [place] [address], * TH AN ENDOTRACHEAL(NO CHARGE) (06/05/2025 8:26 AM EDT) Reta Jones CRNA - 06/05/2025 8:26 AM EDT Reta Douglas CRNA 06/05/2025 8:27 AM General Information and Staff Patient location during procedure: OR Performed: resident/BUS DRIVER/CAA Performed by: Reta Douglas CRNA Authorized by: Miguel Whitney MD Intubation Airway not difficult Urgency: elective Final Airway Details Successful airway: ETT Successful intubation technique: direct laryngoscopy Blade: Stephie Blade size: #3 ETT size (mm): 7.0 Cormack-Lehane Classification: grade I - full view of glottis Placement verified by: chest auscultation and capnometry Measured from: lips ETT to lips (cm): 19 Number of attempts at approach: 1 Ventilation between attempts: 2 hand mask Number of other approaches attempted: 0Final airway type: endotracheal airway Indications and Patient Condition Indications for airway management: anesthesia and airway protection Spontaneous ventilation: present Sedation level: Yes Preoxygenated: yes Soft Tissue Damage: No Dentition Unchanged: Yes Patient position: neutral MILS maintained throughout Mask difficulty assessment: 1 - vent by mask Miguel Whitney MD ANESTHESIA ORDERABLES Final Re sult * Hepatitis C Screening (09/19/2023) Pathologist [facility] Hepatitis C Screening Abstracted Historical Provider HEALTH MAINTENANCE Final Result from Last 3 Months or Most Recently Relevant to Health Maintenance Insurance [facility] [place] [address] Advance Directives * Full Code - Default (Latest Code Status on File) Date Activated Date Inactivated Comments 06/05/2025 6:13 AM 06/05/2025 4:40 PM This is orde r is used when code status has not been discussed with the patient, or code status is otherwise unknown/unconfirmed To update the patient's code status, place a code status order. Do not modify or discontinue any currently active code status orders. Care Teams Public Address System Mechanic Relationship Specialty Start Date End Date Kristen James DO [address] [place] [id number] PCP - General 06/28/23
[2025-08-15 08:48] VITALS: BP 115/70; PULSE 67; O2SAT 98; BMI 27.6
== END 2025-08-15 09:20 | disposition home or self-care (01) ==
LOC: HO.RHES 08:26
PROVIDERS: Visit Provider Student in an Organized Health Care Education/Training Program
DX: M05.9 Rheumatoid arthritis with rheumatoid factor, unspecified (principal); Z51.81 Encounter for therapeutic drug level monitoring; Z79.631 Long term (current) use of antimetabolite agent
CPT/HCPCS: 99214